=== PATIENT | female | born 1975 | race African-American/Black ===

== ENCOUNTER 2017-02-03 09:45 | Emergency (ER) | payer OTHER ==
[~2017-02-03] VITALS: Ht 180.3 cm; Wt 103.4 kg
--- NOTE | 2017-02-03 10:21 | PHYS DOC ---
Past Medical History Past Medical History: Asthma, Diabetes-Type II Past Surgical History: Hysterectomy, Other Additional Past Surgical Histo: bladder sling Alcohol Use: Occasionally Drug Use: None Adult General Chief Complaint Chief Complaint: ABDOMINAL PAIN HPI HPI Patient is a 41 year old female presents emergency department stating that she has having generalized abdominal pain and discomfort since Wednesday. She states she's been having liquidy diarrhea stools since Wednesday as well. Denies any nausea vomiting denies any fever, chills. She states that she had seen her primary care physician and was provided with Bentyl. The Bentyl has not helped with the cramping and pain. She states that she has had approximately 15 diarrhea stools the last 24 hours, no blood noted in the stools. She denies any vaginal discharge, she denies any urinary. She does state however she has were all in the perineal area due to the frequent diarrhea. Patient also states that she has tried Imodium without relief. Review of Systems Review of Systems Constitutional: Denies fever or chills [] Eyes: Denies change in visual acuity, redness, or eye pain [] HENT: Denies nasal congestion or sore throat [] Respiratory: Denies cough or shortness of breath [] Cardiovascular: No additional information not addressed in HPI [] GI: abdominal pain, diarrhea denies nausea and vomiting : Denies dysuria or hematuria [] Musculoskeletal: Denies back pain or joint pain [] Integument: Denies rash or skin lesions [] Neurologic: Denies headache, focal weakness or sensory changes [] Endocrine: Denies polyuria or polydipsia [] Current Medications Current Medications Current Medications Medications (Trade) Dose Ordered Sig/Aminata Start Time Stop Time Status Last Admin Dose Admin Ciprofloxacin Lactate 200 ml @ 200 mls/hr 1X ONCE 02/03/17 12:00 02/03/17 12:59 02/03/17 12:08 200 MLS/HR Fentanyl Citrate (Fentanyl 2ml Vial) 50 mcg PRN Q15MIN PRN 02/03/17 10:30 02/04/17 10:29 02/03/17 12:08 50 MCG Info (Do NOT chart on this entry -- for MONITORING) 1 each PRN DAILY PRN 02/03/17 11:30 02/05/17 11:29 Iohexol (Omnipaque 240 Mg/ml) 30 ml 1X ONCE 02/03/17 11:15 02/03/17 11:16 DC 02/03/17 11:28 30 ML Iohexol (Omnipaque 300 Mg/ml) 75 ml 1X ONCE 02/03/17 11:15 02/03/17 11:16 DC 02/03/17 11:28 75 ML Ondansetron HCl (Zofran) 4 mg 1X ONCE 02/03/17 10:30 02/03/17 10:31 DC 02/03/17 10:44 4 MG Sodium Chloride 1,000 ml @ 1,000 mls/hr 1X ONCE 02/03/17 12:00 02/03/17 12:59 02/03/17 12:09 1,000 MLS/HR Allergies Allergies Allergies Coded Allergies Type Severity Reaction Last Updated Verified povidone-iodine Allergy Mild rash 02/03/17 Yes soap Allergy Mild rash 02/03/17 Yes Physical Exam Physical Exam Constitutional: Well developed, well nourished, no acute distress, non-toxic appearance. [] HENT: Normocephalic, atraumatic, bilateral external ears normal, oropharynx moist, no oral exudates, nose normal. [] Eyes: PERRLA, EOMI, conjunctiva normal, no discharge. [] Neck: Normal range of motion, no tenderness, supple, no stridor. [] Cardiovascular:Heart rate regular rhythm, no murmur [] Lungs & Thorax: Bilateral breath sounds clear to auscultation [] Abdomen: Bowel sounds hypoactive, soft, generalized tenderness, no masses, no pulsatile masses. No guarding, no rebound tenderness noted Skin: Warm, dry, no erythema, no rash. [] Back: No tenderness Extremities: No tenderness, no cyanosis, no clubbing, ROM intact, no edema. [] Neurologic: Alert and oriented X 3, normal motor function, normal sensory function, no focal deficits noted. [] Psychologic: Affect normal, judgement normal, mood normal. [] Current Patient Data Vital Signs Vital Signs Date Time Temp Pulse Resp B/P (MAP) Pulse Ox O2 Delivery O2 Flow Rate FiO2 02/03/17 12:08 16 95 Room Air 02/03/17 09:57 98.4 94 154/66 (95) 98.4 Lab Values Laboratory Tests Test 02/03/17 10:34 02/03/17 10:37 Urine Collection Type Unknown Urine Color Crys Urine Clarity Clear Urine pH 5.5 Urine Specific [place] 1.025 Urine Protein 30 mg/dL (NEG-TRACE) Urine Glucose (UA) Negative mg/dL (NEG) Urine Ketones (Stick) Negative mg/dL (NEG) Urine Blood Small (NEG) Urine Nitrite Positive (NEG) Urine Bilirubin Negative (NEG) Urine Urobilinogen Dipstick 0.2 mg/dL (0.2 mg/dL) Urine Leukocyte Esterase Small (NEG) Urine RBC Occ /HPF (0-2) Urine WBC 1-4 /HPF (0-4) Urine Squamous Epithelial Cells Mod /LPF Urine Bacteria Many /HPF (0-FEW) Urine Mucus Marked /LPF White Blood Count 3.9 x10^3/uL (4.0-11.0) L Red Blood Count 5.22 x10^6/uL (3.50-5.40) Hemoglobin 14.9 g/dL (12.0-15.5) Hematocrit 44.7 % (36.0-47.0) Mean Corpuscular Volume 86 fL (79-100) Mean Corpuscular Hemoglobin 29 pg (25-35) Mean Corpuscular Hemoglobin Concent 33 g/dL (31-37) Red Cell Distribution Width 13.5 % (11.5-14.5) Platelet Count 299 x10^3/uL (140-400) Neutrophils (%) (Auto) 47 % (31-73) Lymphocytes (%) (Auto) 36 % (24-48) Monocytes (%) (Auto) 14 % (0-9) H Eosinophils (%) (Auto) 3 % (0-3) Basophils (%) (Auto) 1 % (0-3) Neutrophils # (Auto) 1.8 x10^3uL (1.8-7.7) Lymphocytes # (Auto) 1.4 x10^3/uL (1.0-4.8) Monocytes # (Auto) 0.5 x10^3/uL (0.0-1.1) Eosinophils # (Auto) 0.1 x10^3/uL (0.0-0.7) Basophils # (Auto) 0.0 x10^3/uL (0.0-0.2) Sodium Level 143 mmol/L (136-145) Potassium Level 3.5 mmol/L (3.5-5.1) Chloride Level 103 mmol/L (98-107) Carbon Dioxide Level 31 mmol/L (21-32) Anion Gap 9 (6-14) Blood Urea Nitrogen 9 mg/dL (7-20) Creatinine 1.0 mg/dL (0.6-1.0) Estimated GFR (Cockcroft-Gault) 73.2 BUN/Creatinine Ratio 9 (6-20) Glucose Level 214 mg/dL (70-99) H Calcium Level 8.8 mg/dL (8.5-10.1) Total Bilirubin 0.3 mg/dL (0.2-1.0) Aspartate Amino Transferase (AST) 29 U/L (15-37) Alanine Aminotransferase (ALT) 51 U/L (14-59) Alkaline Phosphatase 89 U/L (46-116) Total Protein 8.4 g/dL (6.4-8.2) H Albumin 3.7 g/dL (3.4-5.0) Albumin/Globulin Ratio 0.8 (1.0-1.7) L Laboratory Tests 02/03/17 10:37 Laboratory Tests 02/03/17 10:37 EKG EKG [] Radiology/Procedures Radiology/Procedures [][facility] [address] [place], [place] [id number] IMAGING REPORT Signed PATIENT: INGRID MASSEY ACCOUNT: [id number] : 1975 LOCATION: ER AGE: 41 SEX: F EXAM STATUS: REG ER ORD. PHYSICIAN: WILL BRYANT APRN REASON: abdominal pain with diarrhea since Wednesday PROCEDURE: CT ABD PELV W/ORAL&IV CONTRAST CT of the abdomen and pelvis with contrast, 02/03/2017: History: Upper abdomen Multidetector CT imaging was performed following oral and IV administration of contrast. There was an interruption in the scanning process due to patient vomiting, requiring 2 series. Decreased density in the liver is compatible with fatty change. The gallbladder is unremarkable. No pancreatic abnormality is seen. The spleen is of normal size. There is a 5 cm cystic structure with ring like calcification arising from the anterior aspect of the spleen, compatible with old trauma or infection. There is a 1 cm cyst in the medial left kidney. The kidneys are otherwise unremarkable. The abdominal aorta is unremarkable. No retroperitoneal adenopathy is seen. Multiple small mesenteric lymph nodes are present. There is a lymph node cluster in the right lower quadrant with the largest nodes measure approximately 10 mm in short axis dimension. No iliac or inguinal adenopathy is seen. The uterus is surgically absent. A few scattered colonic diverticula are identified. No paracolonic inflammatory process is seen. The appendix is visualized and shows no abnormality. No bowel dilatation is evident. No free fluid or free air is identified in the abdomen or pelvis. IMPRESSION: 1. Hepatic steatosis. 2. Borderline enlarged mesenteric lymph nodes, likely on a reactive basis. 3. Splenic cyst with rim-like calcification, probably due to old trauma or remote infection. 4. Minimal colonic diverticulosis. PQRS Compliance Statement: One or more of the following individualized dose reduction techniques were utilized for this examination: 1. Automated exposure control 2. Adjustment of the mA and/or kV according to patient size 3. Use of iterative reconstruction technique DICTATED and SIGNED BY: ADDISON RITTER MD DATE: 02/03/17 1213 CC: WILL BRYANT APRN; FAVIO BOURNE MD ~ Course & Med Decision Making Course & Med Decision Making Pertinent Labs and Imaging studies reviewed. (See chart for details) Patient was noted to have one emesis here in the hospital as she was provided with by mouth contrast. Patient was provided with CT results as well as lab results. Patient was noted to have a urinary tract infection. She will be placed on Cipro this should also help with diarrhea as well. She'll be encouraged to take Cipro as ordered as well as Zofran as needed for nausea and vomiting recommended plenty of fluids such as water and cranberry juice recommended avoiding cranberry juice cocktail, carbonate beverages, citrus fruits, alcohol, caffeine as these are considered irritants to the bladder. Patient agrees with discharge instructions, treatment regimens and follow-up recommendations. Patient will be discharged home in stable condition. Signs symptoms to return back to emergency department have been provided. [] Dragon Disclaimer Dragon Disclaimer This electronic medical record was generated, in whole or in part, using a voice recognition dictation system. Departure Departure Impression: Primary Impression: Abdominal pain Additional Impressions: Diarrhea Urinary tract infection Disposition: HOME, SELF-CARE Condition: STABLE Referrals: FAVIO BOURNE MD (PCP) Patient Instructions: Abdominal Pain (Nonspecific), Diarrhea, Diarrhea, Easy-to -Read, Urinary Tract Infection, [id number] Additional Instructions: Your CT was negative for any abnormalities. Your urine urine was positive for urinary tract infection. Drink plenty fluids such as water and cranberry juice. Avoid cranberry juice cocktail, carbonated beverages, citrus fruits, alcohol, caffeine as these are considered irritants to the bladder. Medication as prescribed. Continue with the Bentyl leg you have been prescribed for your abdominal cramping. Zofran for nausea vomiting. Clear liquid diet for the next 24 hours. Continue with the Imodium as needed for diarrhea. Follow-up to primary care physician in the next 3-5 days. Return back to emergency prior signs symptoms of become worse. Scripts Ondansetron (ZOFRAN ODT) 4 Mg Tab.rapdis 1 TAB SL Q8HRS, #10 TAB Prov: WILL BRYANT APRN 02/03/17 Ciprofloxacin Hcl (CIPRO) 500 Mg Tablet 1 TAB PO BID, #14 TAB Prov: WILL BRYANT APRN 02/03/17 Problem Qualifiers WILL BRYANT APRN Feb 03, 2017 10:21
[2017-02-03] MEDS ORDERED: ONDANSETRON PF 4 MG/2 ML VIAL. IV ONE (10:30)
[2017-02-03] MEDS: fentaNYL PF VIAL 100 MCG/2 ML VIAL IV PRN ×2 (10:45→12:08)
[2017-02-03 10:57] LABS: BASO % 1 % (0-3); EOS % 3 % (0-3); HEMATOCRIT 44.7 % (36.0-47.0); HEMOGLOBIN 14.9 g/dL (12.0-15.5); LYMPH # 1.4 x10^3/uL (1.0-4.8); LYMPH % 36 % (24-48); MEAN CORPUSCULAR HEMOGLOBIN 29 pg (25-35); MEAN CORPUSCULAR HGB CONC 33 g/dL (31-37); MEAN CORPUSCULAR VOLUME 86 fL (79-100); MONO % 14 % (0-9); NEUT % 47 % (31-73); PLATELET COUNT 299 x10^3/uL (140-400); RED BLOOD COUNT 5.22 x10^6/uL (3.50-5.40); RED CELL DISTRIBUTION WIDTH 13.5 % (11.5-14.5); WHITE BLOOD COUNT 3.9 x10^3/uL (4.0-11.0)
[2017-02-03 11:04] LABS: CALCIUM 8.8 mg/dL (8.5-10.1); GFR 73.2; POTASSIUM 3.5 mmol/L (3.5-5.1)
[2017-02-03 11:05] LABS: BILIRUBIN,URINE NEGATIVE (NEG); GLUCOSE,URINE NEGATIVE (NEG); NITRITE,URINE POSITIVE (NEG); PH,URINE 5.5; PROTEIN,URINE 30 mg/dL (NEG-TRACE); UROBILINOGEN,URINE 0.2 mg/dL (0.2 mg/dL)
[2017-02-03 11:07] LABS: BACTERIA,URINE MANY /HPF (0-FEW); RBC,URINE OCC /HPF (0-2); SQUAMOUS EPITHELIAL CELL,UR MOD /LPF
[2017-02-03 11:09] LABS: ALBUMIN 3.7 g/dL (3.4-5.0); ALBUMIN/GLOBULIN RATIO 0.8 (1.0-1.7); TOTAL BILIRUBIN 0.3 mg/dL (0.2-1.0); TOTAL PROTEIN 8.4 g/dL (6.4-8.2)
[2017-02-03] MEDS ORDERED: IOHEXOL 240 MG/ML 50ML VIAL. PO ONE (11:15)
[2017-02-03] MEDS ORDERED: IOHEXOL 300 MG/ML 75 ML VIAL IV ONE (11:15)
[2017-02-03] MEDS ORDERED: CONTRAST GIVEN MC PRN (11:30)
[2017-02-03] MEDS ORDERED: IV NORMAL SALINE 1000ML BAG 1,000 ML IV ONE (12:00)
[2017-02-03] MEDS ORDERED: CIPROFLOXACIN 400MG PREMIX 200 ML IV ONE (12:00)
--- NOTE | 2017-02-03 12:26 | RAD ---
CT of the abdomen and pelvis with contrast, 02/03/2017: History: Upper abdomen Multidetector CT imaging was performed following oral and IV administration of contrast. There was an interruption in the scanning process due to patient vomiting, requiring 2 series. Decreased density in the liver is compatible with fatty change. The gallbladder is unremarkable. No pancreatic abnormality is seen. The spleen is of normal size. There is a 5 cm cystic structure with ring like calcification arising from the anterior aspect of the spleen, compatible with old trauma or infection. There is a 1 cm cyst in the medial left kidney. The kidneys are otherwise unremarkable. The abdominal aorta is unremarkable. No retroperitoneal adenopathy is seen. Multiple small mesenteric lymph nodes are present. There is a lymph node cluster in the right lower quadrant with the largest nodes measure approximately 10 mm in short axis dimension. No iliac or inguinal adenopathy is seen. The uterus is surgically absent. A few scattered colonic diverticula are identified. No paracolonic inflammatory process is seen. The appendix is visualized and shows no abnormality. No bowel dilatation is evident. No free fluid or free air is identified in the abdomen or pelvis. IMPRESSION: 1. Hepatic steatosis. 2. Borderline enlarged mesenteric lymph nodes, likely on a reactive basis. 3. Splenic cyst with rim-like calcification, probably due to old trauma or remote infection. 4. Minimal colonic diverticulosis. PQRS Compliance Statement: One or more of the following individualized dose reduction techniques were utilized for this examination: 1. Automated exposure control 2. Adjustment of the mA and/or kV according to patient size 3. Use of iterative reconstruction technique
[2017-02-03] MEDS ORDERED: CIPR500T94 PO (13:00)
[2017-02-03] MEDS ORDERED: ONDA4TAB10 SL (13:00)
[2017-02-03 13:18] VITALS: BP 114/69
[2017-02-03] MEDS ORDERED: CIPROFLOXACIN 400MG PREMIX 200 ML IV SCH (21:00)
== END 2017-02-03 13:44 | disposition home or self-care (01) ==
LOC: ER 09:45
DX: N39.0 Urinary tract infection, site not specified (principal); R19.7 Diarrhea, unspecified; E11.9 Type 2 diabetes mellitus without complications; J45.909 Unspecified asthma, uncomplicated; Z90.710 Acquired absence of both cervix and uterus; Z88.8 Allergy status to other drugs, medicaments and biological substances; Z91.041 Radiographic dye allergy status
CPT/HCPCS: 36415; 74177; 80053; 81001; 85027; 87086; 96365; 96375; 96376; 99285; J0744; J2405; J3010; J7030; Q9966; Q9967

== ENCOUNTER → 2018-03-22 | Outpatient (CLI) | payer OTHER ==
[~2018-03-22] MED LIST: CIPR500T94 PO; CONTRAST GIVEN. MC PRN; IOHEXOL 240 MG/ML 50ML VIAL. PO ONE; ONDA4TAB10 SL
--- NOTE | 2018-03-22 11:23 | RAD ---
CT ABDOMEN WO CONTRAST dated 03/22/2018 9:30 AM Indication: Evaluate spleen abnormality..SPLENIC CALCIFICATIPON PRIOR SENT. Comparison: 02/03/2017 Technique: Contiguous axial imaging the abdomen and pelvis performed without the administration of IV or oral contrast. One or more of the following individualized dose reduction techniques were utilized for this examination: 1. Automated exposure control 2. Adjustment of the mA and/or kV according to patient size 3. Use of iterative reconstruction technique Findings: Again noted is a rim calcified low-density lesion of the spleen that measures 4.9 cm diameter and central Hounsfield value of 20, unchanged. Spleen is normal in size. No new lesions identified. Solid abdominal viscera not well evaluated in the absence of contrast material. No apparent attenuation abnormality of the liver. Pancreas adrenal glands and kidneys are unremarkable. No stone or hydronephrosis. Gallbladder unremarkable. Unopacified GI tract normal in caliber and contour. No focal bowel wall thickening. The appendix is normal in caliber. No ascites or lymphadenopathy. Abdominal aorta normal in caliber. Limited images of lung bases are clear. Heart size upper limits of normal. No pleural or pericardial effusion. Bone windows show no acute findings. Impression: 1. No significant interval change in rim calcified lesion of the medial spleen, likely a benign lesion such as splenic cyst or hemangioma or lymphangioma. 2. Otherwise no significant abnormality. Electronically signed by: Prosper Cochran MD (03/22/2018 11:20 AM) [id number]
== END | disposition home or self-care (01) ==
LOC: CT 10:04
PROVIDERS: ATTEND Nurse Practitioner Gerontology
DX: D73.89 Other diseases of spleen (principal); E11.9 Type 2 diabetes mellitus without complications; J45.909 Unspecified asthma, uncomplicated; Z90.710 Acquired absence of both cervix and uterus; Z91.041 Radiographic dye allergy status; Z88.8 Allergy status to other drugs, medicaments and biological substances
CPT/HCPCS: 74150

== ENCOUNTER → 2019-07-24 | Outpatient (CLI) | payer OTHER ==
[2019-01-17 11:05] VITALS: BP 143/94
[~2019-07-24] MED LIST changes: +ALBU2.5V5 NEB; +BECL10.6 IH; +CLON-77 PO; -CONTRAST GIVEN. MC PRN; +ESCITALOPRAM OX10 MG PO; -IOHEXOL 240 MG/ML 50ML VIAL. PO ONE; +PHEN37.53 PO
--- NOTE | 2019-07-24 12:34 | RAD ---
MRI of the lumbar spine without contrast 07/24/2019 CLINICAL HISTORY: Low back pain which radiates down the right leg. TECHNIQUE: Unenhanced T1-weighted and T2-weighted sagittal and axial and inversion recovery sagittal images the lumbar spine were obtained. FINDINGS: Comparison is made to radiographs of the lumbar spine dated 03/14/2018. Mild S-shaped curvature of the thoracolumbar spine is seen. Degenerative signal changes are seen involving the L3-4, L4-5 and L5-S1 discs. Degenerative signal changes are seen within the marrow surrounding these discs. Loss of height of the L5-S1 disc is noted. The conus medullaris is normal morphology, position, and signal characteristics. The L1-2 and L2-3 disc spaces are within normal limits. At the L3-4 and L4-5 disc spaces there are minimal to mild generalized disc bulges. Degenerative changes are seen involving the facet joints bilaterally. There is mild to moderate ligamentum flavum hypertrophy bilaterally. These findings do not result in significant central spinal canal or neural foraminal stenosis. At the L5-S1 disc space there is a mild generalized disc bulge. Superimposed on this disc bulge is a central/left paracentral focal disc protrusion. This measures 3 mm in AP diameter. Degenerative changes are seen involving the facet joints bilaterally. There is mild ligamentum flavum hypertrophy bilaterally. These findings when combined do not result in significant central spinal canal or neural foraminal stenosis. IMPRESSION: The changes of degenerative disc disease are seen involving the mid and lower lumbar spine. These findings do not result in significant central spinal canal or neural foraminal stenosis. Electronically signed by: Avel Oliver MD (07/24/2019 12:31 PM) [facility]
== END | disposition home or self-care (01) ==
LOC: MRI 09:55
PROVIDERS: ATTEND Physician Assistant
DX: M51.17 Intervertebral disc disorders with radiculopathy, lumbosacral region (principal)
CPT/HCPCS: 72148

== ENCOUNTER → 2019-09-20 | Outpatient (CLI) | payer OTHER ==
[2019-01-17 11:05] VITALS: BP 143/94
[~2019-09-20] MED LIST changes: +DULA0.75 SQ; +ESTR0.3T PO; +IOHEXOL 180 MG/ML 10 ML VIAL. ONE; +TRAM50TA PO; +methylPREDNISolone ACETATE 40 MG/ML VIAL. ONE; +methylPREDNISolone ACETATE 80 MG/ML VIAL. ONE
--- NOTE | 2019-09-21 01:04 | PAIN ---
DATE OF SERVICE: 09/20/2019 INITIAL CONSULTATION FOR PAIN CLINIC CHIEF COMPLAINT: Low back and bilateral lower extremity pain. HISTORY OF PRESENT ILLNESS: This is a 44-year-old female who presents with history of pain in the low back and bilateral lower extremities since 05/2019, not a result of any specific injury or action that she is aware of, but this is coming on more noticeably as she has been taking care of her 25-year-old son who has cancer and has been having to help him at home with patient transfer and lifting and this has caused the pain to increase in the low back and the bilateral lower extremities. The patient reports it is slightly worse on the right than the left, but present bilaterally. The patient reports the pain is sharp, stabbing, throbbing, shooting in the lower extremities, tingling and numbness in the back as well as aching in the back, into the posterior gluteus, posterior thighs, posterolateral thighs, anterior thighs and into the calves as well. The patient reports her disability rating from 0-10, 10 being the worst, is an 8-9 with family home responsibilities and recreation, 7-8 with social activity and occupation, 6-7 with self-care, 7-8 with life support activities, and 10 with sexual behavior. The patient did have an MRI scan of the lumbar spine showing degenerative disk changes at L3-L4 and L4-L5 with [id number] ligamentum flavum hypertrophy, L5-S1 showing mild generalized disk bulge, superimposed on disk bulge that is central, left paracentral, focal disk protrusion as well. The patient reports no loss of motor function, but significant fatigability of both lower extremities, also some pain in the mid upper back as well since the low back pain as being worse. PAST MEDICAL HISTORY: Significant for type 2 diabetes and arthritis. PAST SURGICAL HISTORY: Previous surgeries include hysterectomy and gastric sleeve in 2017. CURRENT MEDICATIONS: Include Premarin, albuterol, tramadol, and Trulicity. ALLERGIES: THE PATIENT IS ALLERGIC TO IODINE TOPICAL. FAMILY HISTORY: Significant for heart disease, hypertension, cancers and diabetes. SOCIAL HISTORY: The patient drinks alcohol very rarely, once or twice a year, does not smoke, denies any illegal, illicit or recreational drugs, is , lives with her spouse, has 4 children living at home, and lives locally in [place], [place]. REVIEW OF SYSTEMS: Positive for those items mentioned in history of present illness. All systems reviewed and otherwise negative. It is complete, full and well documented on the patient's chart. PHYSICAL EXAMINATION: VITAL SIGNS: The patient's blood pressure is 125/83, pulse 67, respirations 18, temperature 98.1 degrees Fahrenheit, height is 6 feet, weight is 217 pounds. GENERAL: The patient is awake, alert, oriented, appropriate, very pleasant demeanor. HEENT: Shows normocephalic, atraumatic. Extraocular movements are intact and symmetrical. Oral cavity, mucous membranes are moist and pink. Dentition is intact. NECK: Shows anterior throat supple without palpable lymphadenopathy noted. Swallow reflex is symmetrical. CHEST: Shows normal on inspection. Breath sounds clear to auscultation bilaterally. HEART: Shows S1, S2 clear. No murmurs auscultated. ABDOMEN: Soft, nontender, nondistended. No palpable organomegaly is noted. No rebound or guarding demonstrated. BACK: Shows spine grossly in the midline. Normal appearing thoracic kyphosis and some slight flattening of lumbar lordotic curvature. Lumbar paraspinous muscle shows symmetrical on inspection, on palpation shows some moderate tenderness diffusely bilaterally going diffusely without significant radiation. The patient has good rotational motion of lumbar spine, both laterally as well as extension and flexion without significant difficulty or radiation as well. No tenderness over the spinous processes, sacrum or sacroiliac regions. EXTREMITIES: The patient's lower extremities show deep tendon reflexes at 2+ in the patellar, 1+ tendo-calcaneus tendons. Motor exam is strong with approximately 4 on a scale of 5 with right dorsiflexion, extension and 5/5 on the left, quadriceps and hamstring flexion is likewise 4 on a scale of 5 on the right and 5/5 on the left. The patient does have positive straight leg raise on the right about 40 degrees. Left side is negative. Gaenslen's and Adal's maneuvers are negative bilaterally. The patient's lower extremities are warm and dry to touch, equal in color and appearance. The patient is able to stand, stand on her toes without significant difficulty or loss of balance, walks with a normal-appearing gait, does not appear to favor the right or left lower extremity significantly, not using any assistive devices to ambulate. SKIN: Shows warm and dry, good turgor. No edema. No sores, rashes or bruising throughout. IMPRESSION: 1. This is a 44-year-old female with approximate 3-month history of increasing pain in low back, bilateral lower extremities in a radicular fashion. 2. MRI scan of lumbar spine as noted. 3. Arthritis. 4. Type 2 diabetes. PLAN: Options were discussed with the patient including conservative medical managements, physical therapies and interventional techniques. She would like to pursue interventional techniques. We discussed a lumbar epidural steroid injection using description as well as anatomical models to describe the procedure. Risks were then discussed including, but not limited to bleeding, infection, possibility of epidural hematoma, subsequent neurological compromise, dural puncture, headaches, spinal cord and/or nerve damage, side effects of steroid medication and poor results regarding pain control. The patient understands and wished to proceed. The patient will return to the clinic in approximately 2 weeks for followup. She was counseled on return appointment, activity level and side effects to be aware of. DIAGNOSIS: Lumbar radiculopathy with lumbar degenerative disk disease. PROCEDURE: Lumbar epidural steroid injection with translaminar approach at L5-S1 level using C-arm fluoroscopic guidance under sterile prep and drape using local anesthetic. MEDICATION INJECTED: A total of 120 mg of Depo-Medrol plus 10 mL of preservative-free normal saline and 2 mL of contrast. CONDITION AT DISCHARGE: Stable. The patient tolerated the procedure well, had no complications. MATTHEW LIZ MD DR: JOHN/asher JOB#: [id number] / [id number]
== END ==
LOC: PNCL 08:45
PROVIDERS: ATTEND Anesthesiology
DX: M51.16 Intervertebral disc disorders with radiculopathy, lumbar region (principal); E11.9 Type 2 diabetes mellitus without complications; Z90.710 Acquired absence of both cervix and uterus; Z90.3 Acquired absence of stomach [part of]; Z88.8 Allergy status to other drugs, medicaments and biological substances; Z72.89 Other problems related to lifestyle; Z79.84 Long term (current) use of oral hypoglycemic drugs
CPT/HCPCS: 62323; J1030; J1040; Q9965

== ENCOUNTER → 2019-12-27 | Outpatient (CLI) | payer OTHER ==
[2019-01-17 11:05] VITALS: BP 143/94
--- NOTE | 2019-12-27 11:11 | PAIN ---
DATE OF SERVICE: 12/27/2019 PROGRESS NOTE FOR PAIN CLINIC DIAGNOSES: Lumbar radiculopathy with lumbar degenerative disk disease. HISTORY OF PRESENT ILLNESS: The patient is a 44-year-old female, who returns for followup status post lumbar epidural steroid injection x 1; last seen 09/20/2019. The patient did very well with about 70% improvement for the first 3 weeks to a month. The patient reports the pain is returning now in the low back and right lower extremities, primarily in the posterior gluteus, posterior thigh, posterior calf, it is radiating. The patient describes the pain as aching and sharp, dull and tight in the back and shooting in the right lower extremity with a stabbing pain in the leg as well. The patient reports it is a 10 on a scale of 10 at its worst over the past week, 9 on average and a 6 at its least and is a 9 today. The patient reports no new motor or sensory deficits. No new bowel or bladder incontinence or other complaints. PHYSICAL EXAMINATION: VITAL SIGNS: The patient's blood pressure is 118/78, pulse 83, respirations 18, temperature is 98.2 degrees Fahrenheit, height is 6 feet, weight is 216 pounds. GENERAL: The patient is awake, alert, oriented, appropriate, has very pleasant demeanor. HEENT: Shows normocephalic, atraumatic. Extraocular movements are intact and symmetrical. Oral cavity: Mucous membranes moist and pink. Dentition is intact. NECK: Shows anterior throat supple without palpable lymphadenopathy noted. Swallow reflex symmetrical. CHEST: Shows normal on inspection. Breath sounds are clear bilaterally. No rales, rhonchi or wheezes auscultated. ABDOMEN: Soft, obese, nontender, nondistended. HEART: Shows S1, S2 clear. No murmurs auscultated. BACK: The patient's back shows spine grossly in the midline, slightly exaggerated thoracic kyphosis and minor flattening of lumbar lordotic curvature. Lumbar paraspinous muscle shows symmetrical on inspection, on palpation shows some moderate tenderness diffusely bilaterally and only diffusely without significant radiation. The patient has good rotational motion of lumbar spine, both laterally as well as extension and flexion without difficulty. EXTREMITIES: Lower extremities show deep tendon reflexes 2+ in the patellar, 1+ in the tendo-calcaneus tendons. Motor exam is approximately 4 on a scale of 5 with right dorsiflexion and extension, and 5/5 on the left. Peripheral pulses are 1+ posterior tibia. No peripheral edema is noted bilaterally. Options were discussed with the patient. The patient's old chart was reviewed as her current medication regimen updated. Current review of systems updated today as well. We will proceed with a second in a series of lumbar epidural steroid injection today with fluoroscopic guidance. Risks were again discussed, including but not limited to bleeding, infection, possibility of epidural hematoma and subsequent neurological compromise, dural puncture, headaches, spinal cord and/or nerve damage, side effects of steroid medication and poor results regarding pain control. The patient understands and wished to proceed. The patient will return to the clinic in approximately 2 weeks for followup. She was counseled as to return appointment, activity level and side effects to be aware of. DIAGNOSES: Lumbar radiculopathy with lumbar degenerative disk disease. PROCEDURE: Lumbar epidural steroid injection, translaminar approach L5-S1 level using C-arm fluoroscopic guidance under sterile prep and drape using local anesthetic. MEDICATION INJECTED: A total of 120 mg Depo-Medrol plus 10 mL of preservative-free normal saline and 2 mL of contrast. CONDITION AT DISCHARGE: Stable. The patient tolerated the procedure well, had no complications. MATTHEW LIZ MD DR: JOHN/asher JOB#: [id number] / [id number]
== END ==
LOC: PNCL 10:28
PROVIDERS: ATTEND Anesthesiology
DX: M51.16 Intervertebral disc disorders with radiculopathy, lumbar region (principal)
CPT/HCPCS: 62323; J1030; J1040; Q9965

== ENCOUNTER → 2020-03-20 | Outpatient (CLI) | payer OTHER ==
[2019-01-17 11:05] VITALS: BP 143/94
[~2020-03-20] MED LIST changes: +CYCL5TAB PO; +LIDO700A21 TP
--- NOTE | 2020-03-20 11:33 | PDOC ---
Progress Note - Pain Clinic Date of Service: DOS: DATE: 03/20/20 TIME: 11:30 Diagnosis: Dx: Lumbar radiculopathy with lumbar degenerative disc disease History or Present Illness: HPI: 44-year-old female returns for follow-up status post lumbar epidural surgeries x2. Last seen sixth December 27, 2019, patient reports she did well with the injection at that time pain is returning now however the low back in the right lower extremity posterior gluteus posterior thigh posterior calf worse with walking standing changing positions initially she was a much better with the distance walking doing work activities household activities try with greater ease and comfort. Patient reports her does not awaken her from sleep at night he sleep about 8 hours at a time without interruption. Patient rates her pain as a 10 on scale of 10 is worst average and least over the past week is a 10 on a scale of 10 today patient was sharp and tight shooting in the right lower extremity across the low back with a burning sensation at times as well. Patient reports no new motor or sensory deficits no new bowel or bladder incontinence or other complaints. Physical Exam: VS: Blood pressure is 124/83 pulse 83 respirations 16 temperature is 98.2 F height 6 foot weight is 216 PE: PHYSICAL EXAMINATION: GENERAL: The patient is awake, alert, oriented, appropriate, very pleasant demeanor HEENT: Shows normocephalic, atraumatic. Extraocular movements are intact and symmetrical. Oral cavity: Mucous membranes moist and pink. NECK: Shows anterior throat supple without palpable lymphadenopathy noted. Swallow reflex symmetrical. CHEST: Shows normal on inspection. Breath sounds are clear bilaterally, no rales rhonchi or wheezes auscultated. HEART: Shows S1, S2 clear. No murmurs auscultated. ABDOMEN: Soft, nontender, nondistended. No palpable organomegaly is noted. No rebound or guarding demonstrated. BACK: Shows spine grossly in the midline. Normal-appearing cervical lordotic curvature. There is slightly increased thoracic kyphosis, some minor flattening of the lumbar lordotic curvature. Lumbar paraspinous muscles show symmetrical on inspection, on palpation shows some moderate tenderness diffusely throughout the upper, middle and lower distribution of the paraspinous muscles bilaterally without specific trigger points, without radiation of pain. The patient has good rotational motion of the lumbar spine, both laterally as well as extension and flexion without significant difficulty. No tenderness over the spinous processes, sacrum or sacroiliac regions. EXTREMITIES: Lower extremities show deep tendon reflexes 2+ in the patellar and tendo calcaneus tendons. Motor exam is 4 on a scale of 5 with right dorsiflexion, extension, quadriceps and hamstring flexion and 5/5 on the left. Peripheral pulses are 1+ posterior tibial. No peripheral edema is noted bilaterally. Lower extremities are warm and dry to touch, equal in color and appearance. SKIN: Shows warm and dry, good turgor. No edema. No sores, rashes or bruising throughout. Procedure: Procedure: Options were discussed with the patient. Patient will chart was reviewed his recurrent medication regimen updated current review of systems updated today as well. We will proceed with a third in the series lumbar epidural straight injection today with fluoroscopic guidance. Risks are discussed including but not limited to bleeding infection possibility of epidural hematoma subsequent neurological compromise dural puncture headache spinal cord and or nerve damage side effects of steroid medication and poor results regarding pain control. Patient understands wished to proceed. Patient return to clinic in approximately 2 weeks for follow-up was counseled as to return appointment acti vity level and side effects to be aware of. Medication Injected: Med Injected: Procedure is lumbar epidural steroid injection under local anesthetic using sterile prep and drape at the L5-S1 level using C-arm fluoroscopic guidance in both AP and lateral views medications injected is 120 mg Depo-Medrol + 10 mL preservative-free normal saline and 2 mL contrast- condition at discharge is stable patient tolerated procedure well had no complications. Condition at Discharge: Condition at Discharge: Condition at discharge stable patient tolerated procedure well had no compli cations. MATTHEW LIZ MD Mar 20, 2020 11:33
== END | disposition home or self-care (01) ==
LOC: PNCL 10:22
PROVIDERS: ATTEND Anesthesiology
DX: M51.16 Intervertebral disc disorders with radiculopathy, lumbar region (principal); Z88.8 Allergy status to other drugs, medicaments and biological substances; Z79.899 Other long term (current) drug therapy
CPT/HCPCS: 62323; J1030; J1040; Q9965

== ENCOUNTER 2020-03-28 22:31 | Inpatient (IN) | payer OTHER ==
[~2020-03-28] VITALS: Ht 182.9 cm; Wt 93.1 kg
[~2020-03-28 22:31] MED LIST changes: -IOHEXOL 180 MG/ML 10 ML VIAL. ONE; -methylPREDNISolone ACETATE 40 MG/ML VIAL. ONE; -methylPREDNISolone ACETATE 80 MG/ML VIAL. ONE
--- NOTE | 2020-03-28 23:09 | PHYS DOC ---
Past Medical History Past Medical History: Anxiety, Asthma, Diabetes-Type II Past Surgical History: Hysterectomy, Other Additional Past Surgical Histo: bladder sling Smoking Status: Never Smoker Alcohol Use: Occasionally Drug Use: None General Adult EDM: Chief Complaint: FEVER HPI: HPI: The history was obtained from the patient. Patient is a 44-year-old female with PMH chronic back pain, hypertension, hyperlipidemia who presents with a chief complaint of fevers and body aches. Patient states she has had a documented temperature every day for the past 5 days. She states her temperatures been as high as 102.0 but it has been consistently above 100.0. She notes that she recently received lumbar spinal injections on March 20. She does note that she has had these injections before does have increased back pain over that area post procedure than normal. Denies any trauma or injury. Does report a mild sore throat only when she coughs. Denies dysphonia or pain with swallowing. Does note body aches. Does note mild chest pain and back pain she attributes to aching sensation. Denies urinary symptoms. States she has a history of hysterectomy. Denies vomiting. Does note some nausea. Denies abdominal pain. Patient denies any urinary retention, stool incontinence, saddle anesthesia, history of IV drug use, or history of cancer. Review of Systems: Review of Systems: Constitutional: Positive for fevers and chills Eyes: Denies change in visual acuity. [] HENT: Denies nasal congestion or sore throat. [] Respiratory: Denies cough or shortness of breath. [] Cardiovascular: Denies chest pain or edema. [] GI: Denies abdominal pain, nausea, vomiting, bloody stools or diarrhea. [] : Denies dysuria. [] Musculoskeletal: Positive for back pain, positive for body aches Integument: Denies rash. [] Neurologic: Denies headache, focal weakness or sensory changes. [] Endocrine: Denies polyuria or polydipsia. [] Lymphatic: Denies swollen glands. [] Psychiatric: Denies depression or anxiety. [] Heart Score: Risk Factors: Risk Factors: DM, Current or recent (<one month) smoker, HTN, HLP, family history of CAD, obesity. Risk Scores: Score 0 - 3: 2.5% MACE over next 6 weeks - Discharge Home Score 4 - 6: 20.3% MACE over next 6 weeks - Admit for Clinical Observation Score 7 - 10: 72.7% MACE over next 6 weeks - Early Invasive Strategies Allergies: Allergies: Allergies Coded Allergies Type Severity Reaction Last Updated Verified povidone-iodine Allergy Mild rash 02/03/17 Yes soap Allergy Mild rash 02/03/17 Yes Physical Exam: PE: Constitutional: Well developed, well nourished, no acute distress, non-toxic appearance. [] HENT: Normocephalic, atraumatic, bilateral external ears normal, oropharynx moist, no oral exudates, nose normal. [] Eyes: PERRLA, EOMI, conjunctiva normal, no discharge. [] Neck: Normal range of motion, no tenderness, supple, no stridor. [] Cardiovascular:Heart rate regular rhythm, no murmur [] Lungs & Thorax: Bilateral breath sounds clear to auscultation [] Abdomen: soft, no tenderness, no masses, no pulsatile masses. [] Skin: Warm, dry, no erythema, no rash. [] Back: + 5/5 motor strength in dorsiflexion and plantarflexion of the great toes bilaterally. Sensation intact between the webbing of the first and second toes bilaterally. Extremities: No tenderness, no cyanosis, no clubbing, ROM intact, no edema. [] Neurologic: Alert and oriented X 3, normal motor function, normal sensory function, no focal deficits noted. [] Psychologic: Affect normal, judgement normal, mood normal. [] Current Patient Data: Labs: Laboratory Tests Test 03/28/20 22:50 03/28/20 23:08 Urine Collection Type Unknown Urine Color Yellow Urine Clarity Clear Urine pH 5.5 Urine Specific [place] >=1.030 Urine Protein Negative mg/dL Urine Glucose (UA) Negative mg/dL Urine Ketones (Stick) 15 mg/dL Urine Blood Trace Urine Nitrite Negative Urine Bilirubin Negative Urine Urobilinogen Dipstick 1.0 mg/dL Urine Leukocyte Esterase Negative Urine RBC Occ /HPF Urine WBC 1-4 /HPF Urine Squamous Epithelial Cells Many /LPF Urine Bacteria Moderate /HPF Urine Mucus Marked /LPF White Blood Count 3.7 x10^3/uL Red Blood Count 5.15 x10^6/uL Hemoglobin 14.5 g/dL Hematocrit 43.2 % Mean Corpuscular Volume 84 fL Mean Corpuscular Hemoglobin 28 pg Mean Corpuscular Hemoglobin Concent 34 g/dL Red Cell Distribution Width 13.6 % Platelet Count 190 x10^3/uL Neutrophils (%) (Auto) 68 % Lymphocytes (%) (Auto) 26 % Monocytes (%) (Auto) 6 % Eosinophils (%) (Auto) 0 % Basophils (%) (Auto) 1 % Neutrophils # (Auto) 2.5 x10^3/uL Lymphocytes # (Auto) 1.0 x10^3/uL Monocytes # (Auto) 0.2 x10^3/uL Eosinophils # (Auto) 0.0 x10^3/uL Basophils # (Auto) 0.0 x10^3/uL Sodium Level 135 mmol/L Potassium Level 4.1 mmol/L Chloride Level 98 mmol/L Carbon Dioxide Level 31 mmol/L Anion Gap 6 Blood Urea Nitrogen 14 mg/dL Creatinine 1.0 mg/dL Estimated GFR (Cockcroft-Gault) 72.2 Glucose Level 175 mg/dL Calcium Level 8.2 mg/dL C-Reactive Protein, Quantitative 10.3 mg/L Current Medications Medications (Trade) Dose Ordered Sig/Aminata Route PRN Reason Start Time Stop Time Status Last Admin Dose Admin Diphenhydramine HCl (Benadryl) 25 mg 1X ONCE IVP 03/28/20 23:15 03/28/20 23:16 DC 03/28/20 23:18 Ondansetron HCl (Zofran) 4 mg 1X ONCE IVP 03/28/20 23:15 03/28/20 23:16 DC 03/28/20 23:18 Vital Signs: Vital Signs Date Time Temp Pulse Resp B/P (MAP) Pulse Ox O2 Delivery O2 Flow Rate FiO2 03/28/20 22:45 99.7 96 18 119/62 (81) 98 Room Air 99.7 EKG: EKG: [] Radiology/Procedures: Radiology/Procedures: [] Course & Med Decision Making: Course & Med Decision Making Pertinent Labs and Imaging studies reviewed. (See chart for details) [] Patient is a 44-year-old female who presents with multiple complaints including objective fever at home associated with low back pain status post epidural injections recently. Basic labs have been grossly unremarkable. Urinalysis did show some bacteria. Her low back pain may be attributed to mild UTI. She will be given oral Keflex until urine culture returns. Mildly elevated CRP. COVID swab obtained and pending. Overall I am concerned for her low back pain associated with objective temperatures at home given her recent epidural injections. Her neurologic exam is reassuring at this time. I do feel however she would benefit to have discitis versus epidural abscess ruled out with MRI imaging. Patient will be hospitalized to our observation unit until MRI imaging can be obtained tomorrow morning. On repeat examination her neurologic exam remains unchanged and there is no acute neurologic emergency at this time. Patient agreeable to stay in the observation unit. COVID-19 CRITERIA: The patient was evaluated during the global COVID-19 pandemic, and that diagnosis was suspected/considered upon their initial presentation. Their evaluation, treatment and testing was consistent with current guidelines for patients who present with complaints or symptoms that may be related to COVID-19. Vincent Disclaimer: Dragon Disclaimer: This electronic medical record was generated, in whole or in part, using a voice recognition dictation system. Departure Departure Impression: Primary Impression: Back pain Qualified Codes: M54.5 - Low back pain Additional Impressions: Fever Qualified Codes: R50.82 - Postprocedural fever S/P epidural steroid injection Bacteria in urine Disposition: ADMITTED INPATIENT Condition: STABLE Referrals: UNKNOWN PCP NAME (PCP) Justicifation of Admission Dx: Justifications for Admission: Justification of Admission Dx: Yes Comments: low back pain with fever s/p epidural steroid injections. AJAY BOSS DO Mar 28, 2020 23:09
[2020-03-28 23:10] LABS: BILIRUBIN,URINE NEGATIVE (NEG); CLARITY,URINE CLEAR; COLOR,URINE YELLOW; NITRITE,URINE NEGATIVE (NEG); PH,URINE 5.5 (<5.0-8.0); PROTEIN,URINE NEGATIVE (NEG-TRACE)
[2020-03-28 23:15] LABS: BACTERIA,URINE MODERATE /HPF (0-FEW); RBC,URINE OCC /HPF (0-2); SQUAMOUS EPITHELIAL CELL,UR MANY /LPF
[2020-03-28] MEDS ORDERED: ONDANSETRON PF 4 MG/2 ML VIAL. IVP ONE (23:15)
[2020-03-28] MEDS ORDERED: diphenhydrAMINE 50 MG/ML VIAL IVP ONE (23:15)
[2020-03-28 23:25] LABS: BASO % 1 % (0-3); EOS % 0 % (0-3); HEMATOCRIT 43.2 % (36.0-47.0); HEMOGLOBIN 14.5 g/dL (12.0-15.5); LYMPH % 26 % (24-48); MEAN CORPUSCULAR HEMOGLOBIN 28 pg (25-35); MEAN CORPUSCULAR HGB CONC 34 g/dL (31-37); MEAN CORPUSCULAR VOLUME 84 fL (79-100); MONO # 0.2 x10^3/uL (0.0-1.1); MONO % 6 % (0-9); NEUT # 2.5 x10^3/uL (1.8-7.7); NEUT % 68 % (31-73); PLATELET COUNT 190 x10^3/uL (140-400); RED BLOOD COUNT 5.15 x10^6/uL (3.50-5.40); RED CELL DISTRIBUTION WIDTH 13.6 % (11.5-14.5); WHITE BLOOD COUNT 3.7 x10^3/uL (4.0-11.0)
[2020-03-28 23:35] LABS: CALCIUM 8.2 mg/dL (8.5-10.1); GFR 72.2; POTASSIUM 4.1 mmol/L (3.5-5.1)
[2020-03-28 23:36] LABS: C-REACTIVE PROTEIN 10.3 mg/L (0-3.3)
[2020-03-29] MEDS ORDERED: CEPHALEXIN 250 MG CAPSULE. PO ONE (00:30)
[2020-03-29] MEDS ORDERED: ONDANSETRON PF 4 MG/2 ML VIAL. IV PRN (00:30)
[2020-03-29] MEDS ORDERED: HYDROcodone/APAP 5/325MG 1 TAB TABLET PO ONE (01:45)
[2020-03-29 02:00] VITALS: BP 109/54
--- NOTE | 2020-03-29 05:23 | RAD ---
INDICATION: Reason: body aches + fever / Spl. Instructions: / History: COMPARISON: December 2018 FINDINGS: Single view of chest obtained. Cardiomediastinal silhouette is enlarged. Hypoexpanded examination with mild linear opacities at lung bases. IMPRESSION: * Hypoexpanded exam with mild linear opacities at lung bases. The most likely causes atelectasis but early infiltrate is not excluded. Electronically signed by: Bandar Howard MD (03/29/2020 5:20 AM) [id number]
[2020-03-29 07:41] VITALS: BP 99/66
--- NOTE | 2020-03-29 08:39 | PDOC1 ---
History and Physical Date of Admission Date of Admission DATE: 03/29/20 TIME: 08:35 Identification/Chief Complaint Chief Complaint Fevers, back pain, leg spasms Source Source: Patient History of Present Illness History of Present Illness Ms Price (Alba) is a 44 yo F w/ PMHx Anxiety, Asthma, Diabetes-Type II, chronic lower back pain who presents with multiple complaints including objective fever at home of 100.7 F associated with low back pain status post epidural injections recently, most recent on 03/20/2020. She also c/o generalized body aches. Patient states she has had a documented temperature every day for the past 5 days, temp as high as 102F. She notes increased back pain over her post procedure area from LESI, though no obvious cellulitis noted on examination. Denies any trauma or injury. Does report a mild sore throat only when she coughs. Denies dysphonia or pain with swallowing. Does note body aches. Does note mild chest pain and back pain she attributes to aching sensation. Denies urinary symptoms. States she has a history of hysterectomy and bladder sling, however. Denies vomiting. Does note some nausea. Denies abdominal pain. Patient denies any urinary retention, stool incontinence, saddle anesthesia, but she does notice bilateral leg spasms that she cannot control in thighs and calves and also some weakness to the bilateral legs. CXR hypoexpanded exam with mild linear opacities at lung bases. Labs significant for WBC 3.7, Hb 14.5, platelets 190, NA 135, K4.1, mag 2.1, BUN 14, CR 1, glucose 175, CA 10.3, CRP elevated at 10.3. Given Keflex in ED. COVID swab obtained and pending. Patient admitted for further treatment. Past Medical History Cardiovascular: No pertinent hx, Other Pulmonary: Asthma CENTRAL NERVOUS SYSTEM: Other GI: No pertinent hx Heme/Onc: No pertinent hx Hepatobiliary: No pertinent hx Psych: Anxiety, Other Musculoskeletal: Osteoarthritis Rheumatologic: No pertinent hx Infectious disease: No pertinent hx Renal/: No pertinent hx Endocrine: Diabetes Past Surgical History Past Surgical History: Hysterectomy Family History Family History: Heart Disease Social History ALCOHOL: none Drugs: None Current Problem List Problem List Problems Medical Problems: (1) Back pain Status: Acute (2) Bacteria in urine Status: Acute (3) Fever Status: Acute Current Medications Current Medications Current Medications Diphenhydramine HCl (Benadryl) 25 mg 1X ONCE IVP Last administered on 03/28/20at 23:18; Start 03/28/20 at 23:15; Stop 03/28/20 at 23:16; Status DC Ondansetron HCl (Zofran) 4 mg 1X ONCE IVP Last administered on 03/28/20at 23:18; Start 03/28/20 at 23:15; Stop 03/28/20 at 23:16; Status DC Ondansetron HCl (Zofran) 4 mg PRN Q8HRS PRN IV NAUSEA/VOMITING; Start 03/29/20 at 00:30; Stop 03/30/20 at 00:29 Cephalexin HCl (Keflex) 1,000 mg 1X ONCE PO Last administered on 03/29/20at 01:34; Start 03/29/20 at 00:30; Stop 03/29/20 at 00:31; Status DC Acetaminophen/ Hydrocodone Bitart (Lortab 5/325) 1 tab 1X ONCE PO Last administered on 03/29/20at 01:45; Start 03/29/20 at 01:45; Stop 03/29/20 at 01:46; Status DC Active Scripts Active Reported Lidocaine PATCH (Lidocaine) 1 Each Adh..patch 1 Each TP DAILY REMOVE AFTER 12 HOURS Cyclobenzaprine Hcl 5 Mg Tablet 5 Mg PO TID Premarin (Estrogens, Conjugated) 0.3 Mg Tablet Unknown Dose PO DAILY Trulicity (Dulaglutide) 0.75 Mg/0.5 Ml Pen.injctr Unknown Dose SQ WEEKLYAC Tramadol Hcl 50 Mg Tablet 50 Mg PO DAILY PRN Albuterol Sulfate Neb Soln (Albuterol Sulfate) 2.5 Mg/3 Ml Vial.neb 1 Vial NEB QID Allergies Allergies: Coded Allergies: povidone-iodine (Verified Allergy, Mild, rash, 02/03/17) soap (Verified Allergy, Mild, rash, 02/03/17) ROS General: YES: Chills, Fatigue, Malaise; No: Night Sweats, Appetite, Other PSYCHOLOGICAL ROS: YES: Anxiety; No: Behavioral Disorder, Concentration difficultie, Decreased libido, Depression, Disorientation, Hallucinations, Hostility, Irritablity, Memory difficulties, Mood Swings, Obsessive thoughts, Physical abuse, Sexual abuse, Sleep disturbances, Suicidal ideation, Other Eyes: No Blurry vision, No Decreased vision, No Double vision, No Dry eyes, No Excessive tearing, No Eye Pain, No Itchy Eyes, No Loss of vision, No Photophobia, No Scotomata, No Uses contacts, No Uses glasses, No Other HEENT: No: Heacaches, Visual Changes, Hearing change, Nasal congestion, Nasal discharge, Oral lesions, Sinus pain, Sore Throat, Epistaxis, Sneezing, Snoring, Tinnitus, Vertigo, Vocal changes, Other ALLERGY AND IMMUNOLOGY: No: Hives, Insect Bite Sensitivity, Itchy/Watery Eyes, Nasal Congestion, Post Nasal Drip, Seasonal Allergies, Other Hematological and Lymphatic: No: Bleeding Problems, Blood Clots, Blood Transfusions, Brusing, Night Sweats, Pallor, Swollen Lymph Nodes, Other ENDOCRINE: No: Breast Changes, Galactorrhea, Hair Pattern Changes, Hot Flashes, Malaise/lethargy, Mood Swings, Palpitations, Polydipsia/polyuria, Skin Changes, Temperature Intolerance, Unexpected Weight Changes, Other Breast: No New/Changing Breast Lumps, No Nipple changes, No Nipple discharge, No Other Respiratory: YES: Cough, Shortness of breath; No: Hemoptysis, Orthopnea, Pleuritic Pain, SOB with excertion, Sputum Changes, Stridor, Tachypnea, Wheezing, Other Cardiovascular: No Chest Pain, No Palpitations, No Orthopnea, No Paroxysmal No c. Dyspnea, No Edema, No Lt Headedness, No Other Gastrointestinal: Yes Nausea; No Vomiting, No Abdominal Pain, No Diarrhea, No Constipation, No Melena, No Hematochezia, No Other Genitourinary: No Dysuria, No Frequency, No Incontinence, No Hematuria, No Retention, No Discharge, No Urgency, No Pain, No Flank Pain, No Other, No , No , No , No , No , No , No Musculoskeletal: Yes Gait Disturbance, Yes Joint Pain, Yes Muscular Weakness; No Joint Stiffness, No Joint Swelling, No Muscle Pain, No Pain In:, No Swelling In:, No Other Neurological: Yes Gait Disturbance, Yes Tremors; No Behavorial Changes, No Bowel/Bladder ControlChng, No Confusion, No Dizziness, No Headaches, No Impaired Coord/balance, No Memory Loss, No Numbness/Tingling, No Seizures, No Speech Problems, No Visual Changes, No Weakness, No Other Skin: No Dry Skin, No Eczema, No Hair Changes, No Lumps, No Mole Changes, No Mottling, No Nail Changes, No Pruritus, No Rash, No Skin Lesion Changes, No Other, No Acne Physical Exam General: Alert, Oriented X3, Cooperative, mild distress HEENT: Atraumatic, PERRLA, EOMI, Mucous membr. moist/pink Lungs: Clear to auscultation, Normal air movement Heart: S1S2, RRR, no thrills, no rubs, no gallops, no murmurs Extremities: No clubbing, No cyanosis, No edema, Normal pulses, No tenderness/s welling Skin: No rashes, No breakdown, No significant lesion Neuro: Normal speech, Normal tone, Sensation intact, Cranial nerves 3-12 NL, Reflexes 2+, Other Psych/Mental Status: Mental status NL, Mood NL Vitals Vitals Vital Signs Date Time Temp Pulse Resp B/P (MAP) Pulse Ox O2 Delivery O2 Flow Rate FiO2 03/29/20 07:41 99.2 84 20 99/66 (77) 96 Room Air 99.2 Labs Labs Laboratory Tests Test 03/28/20 22:50 03/28/20 23:08 Urine Collection Type Unknown Urine Color Yellow Urine Clarity Clear Urine pH 5.5 (<5.0-8.0) Urine Specific [place] >=1.030 (1.000-1.030) Urine Protein Negative mg/dL (NEG-TRACE) Urine Glucose (UA) Negative mg/dL (NEG) Urine Ketones (Stick) 15 mg/dL (NEG) Urine Blood Trace (NEG) Urine Nitrite Negative (NEG) Urine Bilirubin Negative (NEG) Urine Urobilinogen Dipstick 1.0 mg/dL (0.2 mg/dL) Urine Leukocyte Esterase Negative (NEG) Urine RBC Occ /HPF (0-2) Urine WBC 1-4 /HPF (0-4) Urine Squamous Epithelial Cells Many /LPF Urine Bacteria Moderate /HPF (0-FEW) Urine Mucus Marked /LPF White Blood Count 3.7 x10^3/uL (4.0-11.0) Red Blood Count 5.15 x10^6/uL (3.50-5.40) Hemoglobin 14.5 g/dL (12.0-15.5) Hematocrit 43.2 % (36.0-47.0) Mean Corpuscular Volume 84 fL (79-100) Mean Corpuscular Hemoglobin 28 pg (25-35) Mean Corpuscular Hemoglobin Concent 34 g/dL (31-37) Red Cell Distribution Width 13.6 % (11.5-14.5) Platelet Count 190 x10^3/uL (140-400) Neutrophils (%) (Auto) 68 % (31-73) Lymphocytes (%) (Auto) 26 % (24-48) Monocytes (%) (Auto) 6 % (0-9) Eosinophils (%) (Auto) 0 % (0-3) Basophils (%) (Auto) 1 % (0-3) Neutrophils # (Auto) 2.5 x10^3/uL (1.8-7.7) Lymphocytes # (Auto) 1.0 x10^3/uL (1.0-4.8) Monocytes # (Auto) 0.2 x10^3/uL (0.0-1.1) Eosinophils # (Auto) 0.0 x10^3/uL (0.0-0.7) Basophils # (Auto) 0.0 x10^3/uL (0.0-0.2) Sodium Level 135 mmol/L (136-145) Potassium Level 4.1 mmol/L (3.5-5.1) Chloride Level 98 mmol/L (98-107) Carbon Dioxide Level 31 mmol/L (21-32) Anion Gap 6 (6-14) Blood Urea Nitrogen 14 mg/dL (7-20) Creatinine 1.0 mg/dL (0.6-1.0) Estimated GFR (Cockcroft-Gault) 72.2 Glucose Level 175 mg/dL (70-99) Calcium Level 8.2 mg/dL (8.5-10.1) C-Reactive Protein, Quantitative 10.3 mg/L (0-3.3) Laboratory Tests Test 03/28/20 22:50 03/28/20 23:08 Urine Collection Type Unknown Urine Color Yellow Urine Clarity Clear Urine pH 5.5 (<5.0-8.0) Urine Specific [place] >=1.030 (1.000-1.030) Urine Protein Negative mg/dL (NEG-TRACE) Urine Glucose (UA) Negative mg/dL (NEG) Urine Ketones (Stick) 15 mg/dL (NEG) Urine Blood Trace (NEG) Urine Nitrite Negative (NEG) Urine Bilirubin Negative (NEG) Urine Urobilinogen Dipstick 1.0 mg/dL (0.2 mg/dL) Urine Leukocyte Esterase Negative (NEG) Urine RBC Occ /HPF (0-2) Urine WBC 1-4 /HPF (0-4) Urine Squamous Epithelial Cells Many /LPF Urine Bacteria Moderate /HPF (0-FEW) Urine Mucus Marked /LPF White Blood Count 3.7 x10^3/uL (4.0-11.0) Red Blood Count 5.15 x10^6/uL (3.50-5.40) Hemoglobin 14.5 g/dL (12.0-15.5) Hematocrit 43.2 % (36.0-47.0) Mean Corpuscular Volume 84 fL (79-100) Mean Corpuscular Hemoglobin 28 pg (25-35) Mean Corpuscular Hemoglobin Concent 34 g/dL (31-37) Red Cell Distribution Width 13.6 % (11.5-14.5) Platelet Count 190 x10^3/uL (140-400) Neutrophils (%) (Auto) 68 % (31-73) Lymphocytes (%) (Auto) 26 % (24-48) Monocytes (%) (Auto) 6 % (0-9) Eosinophils (%) (Auto) 0 % (0-3) Basophils (%) (Auto) 1 % (0-3) Neutrophils # (Auto) 2.5 x10^3/uL (1.8-7.7) Lymphocytes # (Auto) 1.0 x10^3/uL (1.0-4.8) Monocytes # (Auto) 0.2 x10^3/uL (0.0-1.1) Eosinophils # (Auto) 0.0 x10^3/uL (0.0-0.7) Basophils # (Auto) 0.0 x10^3/uL (0.0-0.2) Sodium Level 135 mmol/L (136-145) Potassium Level 4.1 mmol/L (3.5-5.1) Chloride Level 98 mmol/L (98-107) Carbon Dioxide Level 31 mmol/L (21-32) Anion Gap 6 (6-14) Blood Urea Nitrogen 14 mg/dL (7-20) Creatinine 1.0 mg/dL (0.6-1.0) Estimated GFR (Cockcroft-Gault) 72.2 Glucose Level 175 mg/dL (70-99) Calcium Level 8.2 mg/dL (8.5-10.1) C-Reactive Protein, Quantitative 10.3 mg/L (0-3.3) Images Images CXR: Cardiomediastinal silhouette is enlarged. Hypoexpanded examination with mild linear opacities at lung bases. IMPRESSION: Hypoexpanded exam with mild linear opacities at lung bases. The most likely causes atelectasis but early infiltrate is not excluded. VTE Prophylaxis Ordered VTE Prophylaxis Devices: No VTE Pharmacological Prophylaxi: Yes Assessment/Plan Assessment/Plan A/P: Intractable back pain -acute on chronic, not responsive to Lidoderm patch and heat, worse after recent LESI, subdural hematoma or abscesses possibly given her fevers. Leg weakness and spasms -no saddle anesthesia or urinary or fecal incontinence, and there is no immediate neurological concern, however MRI with contrast to be appropriate to rule out epidural abscess or epidural hematoma given her symptoms after recent LESI. Fevers -no COVID-19 contacts, she does have a 26-year-old son and 15-year-old at home her 26-year-old son. 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 Anxiety - cont meds, would overall advise to reduce and cut out xanax and use alternative medication that does not have as many side effects Asthma - prn inhaler Diabetes-Type II - basal bolus plus insulin Chronic back pain - s/p recent LESI FEN - ADA diet PPX - SCDs FULL CODE Dispo - inpatient Justifications for Admission Other Justification LEIGHANN TOUSSAINT MD Mar 29, 2020 08:39
[2020-03-29] MEDS ORDERED: traMADol 50 MG TABLET PO PRN (08:45)
[2020-03-29] MEDS ORDERED: DEXTROSE 50% 25 GM / 50ML DISP.SYRIN. IV PRN (08:45)
[2020-03-29] MEDS: INSULIN LISPRO 300 UNITS/3 ML VIAL. SQ SCH ×4 (08:45→21:00)
[2020-03-29] MEDS ORDERED: ALBUTEROL SULFATE 2.5 MG/3 ML NEBU. NEB SCH ×2 (09:00)
[2020-03-29] MEDS ORDERED: ALBUTEROL SULFATE 2.5 MG/3 ML NEBU. NEB PRN (09:30)
[2020-03-29] MEDS: ENOXAPARIN 40 MG/0.4 ML SYRINGE. SQ SCH (09:51)
[2020-03-29] MEDS: LIDOCAINE (700MG/PATCH) PATCH. TP SCH (09:51)
[2020-03-29 10:26] LABS: PROTHROMBIN TIME PATIENT 12.9 SEC (11.7-14.0)
[2020-03-29 10:47] LABS: ALBUMIN/GLOBULIN RATIO 0.7 (1.0-1.7); GFR 72.2; TOTAL BILIRUBIN 0.4 mg/dL (0.2-1.0); TOTAL PROTEIN 7.3 g/dL (6.4-8.2)
[2020-03-29 10:50] LABS: D-DIMER 0.61 ug/mlFEU (0.00-0.50)
[2020-03-29 11:25] VITALS: BP 96/54
[2020-03-29] MEDS: ACETAMINOPHEN 325 MG TABLET. PO PRN ×2 (12:11→20:35)
[2020-03-29] MEDS: CYCLOBENZAPRINE 10 MG TABLET. PO PRN ×2 (14:24→20:35)
[2020-03-29] MEDS: ONDANSETRON PF 4 MG/2 ML VIAL. IV PRN (14:35)
[2020-03-29 15:29] VITALS: BP 114/68
--- NOTE | 2020-03-29 16:52 | NUR ---
SW following. Spoke with RN and reviewed chart. Pt from home on a regular diet and room air. Pt on IV Dextrose. Pt is COVID pending. PT has been ordered. SW following.
[2020-03-29 19:00] VITALS: BP 88/58
[2020-03-29] MEDS: PATCH REMOVAL. MC SCH (21:00)
[2020-03-29 23:00] VITALS: BP 97/62
[2020-03-30 03:00] VITALS: BP 88/57
[2020-03-30] MEDS: ACETAMINOPHEN 325 MG TABLET. PO PRN ×3 (03:28→20:45)
[2020-03-30 03:45] LABS: BASO % 0 % (0-3); EOS % 0 % (0-3); HEMOGLOBIN 13.2 g/dL (12.0-15.5); LYMPH # 0.9 x10^3/uL (1.0-4.8); LYMPH % 25 % (24-48); MEAN CORPUSCULAR HEMOGLOBIN 28 pg (25-35); MEAN CORPUSCULAR HGB CONC 33 g/dL (31-37); MEAN CORPUSCULAR VOLUME 85 fL (79-100); MONO # 0.2 x10^3/uL (0.0-1.1); MONO % 5 % (0-9); NEUT # 2.4 x10^3/uL (1.8-7.7); NEUT % 70 % (31-73); PLATELET COUNT 147 x10^3/uL (140-400); RED BLOOD COUNT 4.72 x10^6/uL (3.50-5.40); RED CELL DISTRIBUTION WIDTH 13.5 % (11.5-14.5); WHITE BLOOD COUNT 3.5 x10^3/uL (4.0-11.0)
[2020-03-30] MEDS: CYCLOBENZAPRINE 10 MG TABLET. PO PRN ×2 (04:39→20:58)
[2020-03-30 04:48] LABS: ALBUMIN 2.9 g/dL (3.4-5.0); ALBUMIN/GLOBULIN RATIO 0.7 (1.0-1.7); CREATININE 1.1 mg/dL (0.6-1.0); GFR 64.7; POTASSIUM 4.3 mmol/L (3.5-5.1); TOTAL BILIRUBIN 0.3 mg/dL (0.2-1.0); TOTAL PROTEIN 7.1 g/dL (6.4-8.2)
[2020-03-30 07:25] VITALS: BP 100/56
[2020-03-30] MEDS: ENOXAPARIN 40 MG/0.4 ML SYRINGE. SQ SCH ×2 (09:16→20:45)
[2020-03-30] MEDS: LIDOCAINE (700MG/PATCH) PATCH. TP SCH (09:16)
[2020-03-30] MEDS: INSULIN LISPRO 300 UNITS/3 ML VIAL. SQ SCH ×4 (09:17→21:00)
[2020-03-30] MEDS ORDERED: traMADol 50 MG TABLET PO PRN (11:15)
[2020-03-30 11:34] VITALS: BP 110/53
[2020-03-30] MEDS: traMADol 50 MG TABLET PO PRN ×2 (12:07→20:59)
--- NOTE | 2020-03-30 12:30 | NUR ---
Pt asked if nursing staff could run debit card to her family member in order to "pay rent." Pt handed this RN one debit card with a picture of person on it and stated that her family member is in a black chevy impala. This RN handed debit card to GAETANO Salinas and she brought it to the family member at the main entrance.
[2020-03-30 15:06] VITALS: BP 120/62
[2020-03-30] MEDS ORDERED: ORPHENADRINE CITRATE 60 MG/2 ML VIAL. IM ONE (15:30)
[2020-03-30] MEDS ORDERED: diazePAM 2 MG TABLET PO PRN (15:30)
--- NOTE | 2020-03-30 15:32 | PDOC ---
[facility] PROGRESS NOTE Date of Service DOS: DATE: 03/30/20 TIME: 15:23 Chief Complaint Chief Complaint A/P: Intractable back pain -acute on chronic, not responsive to Lidoderm patch and heat, worse after recent LESI, subdural hematoma or abscesses possibly given her fevers. Leg weakness and spasms -no saddle anesthesia or urinary or fecal incontinence, and there is no immediate neurological concern, however MRI with contrast to be appropriate to rule out epidural abscess or epidural hematoma given her symptoms after recent LESI. COVID 19 -not requiring oxygen, will place on Lovenox. No indication for steroids or plasma will continue to monitor O2 needs. her only steroid indicat ion may actually be for her back pain Sepsis - 2/2 COVID 19 -no COVID-19 contacts, she does have a 26-year-old son and 15-year-old at home her 26-year-old son. 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 Anxiety - cont meds, would overall advise to reduce and cut out xanax and use alternative medication that does not have as many side effects Asthma - prn inhaler Diabetes-Type II - basal bolus plus insulin Chronic back pain - s/p recent LESI FEN - ADA diet PPX - SCDs FULL CODE Dispo - inpatient History of Present Illness History of Present Illness Ms Price (Bethany-Bethany) is a 44 yo F w/ PMHx Anxiety, Asthma, Diabetes-Type II, chronic lower back pain who presents with multiple complaints including objective fever at home of 100.7 F associated with low back pain status post epidural injections recently, most recent on 03/20/2020. She also c/o generalized body aches. Patient states she has had a documented temperature every day for the past 5 days, temp as high as 102F. She notes increased back pain over her post procedure area from LESI, though no obvious cellulitis noted on examination. Denies any trauma or injury. Does report a mild sore throat only when she coughs. Denies dysphonia or pain with swallowing. Does note body aches. Does note mild chest pain and back pain she attributes to aching sensation. Denies urinary symptoms. States she has a history of hysterectomy and bladder sling, however. Denies vomiting. Does note some nausea. Denies abdominal pain. Patient denies any urinary retention, stool incontinence, saddle anesthesia, but she does notice bilateral leg spasms that she cannot control in thighs and calves and also some weakness to the bilateral legs. CXR hypoexpanded exam with mild linear opacities at lung bases. Labs significant for WBC 3.7, Hb 14.5, platelets 190, NA 135, K4.1, mag 2.1, BUN 14, CR 1, glucose 175, CA 10.3, CRP elevated at 10.3. Given Keflex in ED. COVID swab obtained and returned positive. Urine culture returned with normal genitourinary danyell. Febrile to 101 F this morning. She still having a lot of back pain although less spasming still weak in both legs and feeling unsteady. She has a slight cough. No O2 needs. Sad about her COVID 19 status. Vitals/I&O Vitals/I&O: Vital Signs Date Time Temp Pulse Resp B/P (MAP) Pulse Ox O2 Delivery O2 Flow Rate FiO2 03/30/20 15:06 99.4 68 18 120/62 (81) 99 Room Air 99.4 I & O 03/29/20 03/29/20 03/30/20 15:00 23:00 07:00 Intake Total 450 ml 390 ml 1000 ml Balance 450 ml 390 ml 1000 ml Physical Exam General: Alert, Oriented X3, Cooperative, mild distress Extremities: No clubbing, No cyanosis, No edema, Normal pulses, No tenderness/swelling Skin: No rashes, No breakdown, No significant lesion Labs Labs: Laboratory Tests Test 03/29/20 16:29 03/29/20 21:19 03/30/20 03:30 03/30/20 07:54 Glucose (Fingerstick) 208 mg/dL (70-99) 192 mg/dL (70-99) 192 mg/dL (70-99) White Blood Count 3.5 x10^3/uL (4.0-11.0) Red Blood Count 4.72 x10^6/uL (3.50-5.40) Hemoglobin 13.2 g/dL (12.0-15.5) Hematocrit 40.0 % (36.0-47.0) Mean Corpuscular Volume 85 fL (79-100) Mean Corpuscular Hemoglobin 28 pg (25-35) Mean Corpuscular Hemoglobin Concent 33 g/dL (31-37) Red Cell Distribution Width 13.5 % (11.5-14.5) Platelet Count 147 x10^3/uL (140-400) Neutrophils (%) (Auto) 70 % (31-73) Lymphocytes (%) (Auto) 25 % (24-48) Monocytes (%) (Auto) 5 % (0-9) Eosinophils (%) (Auto) 0 % (0-3) Basophils (%) (Auto) 0 % (0-3) Neutrophils # (Auto) 2.4 x10^3/uL (1.8-7.7) Lymphocytes # (Auto) 0.9 x10^3/uL (1.0-4.8) Monocytes # (Auto) 0.2 x10^3/uL (0.0-1.1) Eosinophils # (Auto) 0.0 x10^3/uL (0.0-0.7) Basophils # (Auto) 0.0 x10^3/uL (0.0-0.2) Sodium Level 139 mmol/L (136-145) Potassium Level 4.3 mmol/L (3.5-5.1) Chloride Level 103 mmol/L (98-107) Carbon Dioxide Level 32 mmol/L (21-32) Anion Gap 4 (6-14) Blood Urea Nitrogen 15 mg/dL (7-20) Creatinine 1.1 mg/dL (0.6-1.0) Estimated GFR (Cockcroft-Gault) 64.7 BUN/Creatinine Ratio 14 (6-20) Glucose Level 170 mg/dL (70-99) Calcium Level 8.0 mg/dL (8.5-10.1) Total Bilirubin 0.3 mg/dL (0.2-1.0) Aspartate Amino Transf (AST/SGOT) 35 U/L (15-37) Alanine Aminotransferase (ALT/SGPT) 42 U/L (14-59) Alkaline Phosphatase 60 U/L (46-116) Total Protein 7.1 g/dL (6.4-8.2) Albumin 2.9 g/dL (3.4-5.0) Albumin/Globulin Ratio 0.7 (1.0-1.7) Test 03/30/20 10:30 Glucose (Fingerstick) 225 mg/dL (70-99) Assessment and Plan Assessmemt and Plan Problems Medical Problems: (1) Back pain Status: Acute (2) Bacteria in urine Status: Acute (3) Fever Status: Acute Comment Review of Relevant I have reviewed the following items karolina (where applicable) has been applied. Medications: Current Medications Medications (Trade) Dose Ordered Sig/Aminata Route PRN Reason Start Time Stop Time Status Last Admin Dose Admin Tramadol HCl (Ultram) 50 mg PRN Q6HRS PRN PO MODERATE PAIN 03/30/20 12:00 03/30/20 12:07 Justifications for Admission Other Justification LEIGHANN TOUSSAINT MD Mar 30, 2020 15:32
[2020-03-30] MEDS ORDERED: MORPHINE SULFATE 2 MG/ML VIAL. IV PRN (16:00)
[2020-03-30] MEDS ORDERED: ENOXAPARIN 40 MG/0.4 ML SYRINGE. SQ SCH (16:00)
[2020-03-30] MEDS: ASCORBIC ACID 500 MG TABLET PO SCH (16:14)
[2020-03-30] MEDS: ZINC SULFATE 220 MG CAPSULE. PO SCH (16:14)
[2020-03-30 19:00] VITALS: BP 101/57
[2020-03-30] MEDS: PATCH REMOVAL. MC SCH (21:00)
[2020-03-30 23:00] VITALS: BP 86/52
[2020-03-31] VITALS (7 sets, daily range): BP systolic 91–106; BP diastolic 51–59
[2020-03-31] MEDS: ACETAMINOPHEN 325 MG TABLET. PO PRN ×3 (05:01→23:06)
[2020-03-31] MEDS: INSULIN LISPRO 300 UNITS/3 ML VIAL. SQ SCH ×4 (08:00→21:48)
[2020-03-31] MEDS: ENOXAPARIN 40 MG/0.4 ML SYRINGE. SQ SCH ×2 (08:26→21:09)
[2020-03-31] MEDS: LIDOCAINE (700MG/PATCH) PATCH. TP SCH (08:26)
[2020-03-31] MEDS: ASCORBIC ACID 500 MG TABLET PO SCH (08:26)
[2020-03-31] MEDS: ZINC SULFATE 220 MG CAPSULE. PO SCH (08:26)
--- NOTE | 2020-03-31 09:21 | PDOC ---
[facility] [facility] PROGRESS NOTE Date of Service DOS: DATE: 03/31/20 TIME: 09:20 Chief Complaint Chief Complaint A/P: Intractable back pain -acute on chronic, not responsive to Lidoderm patch and heat, worse after recent LESI, subdural hematoma or abscesses possibly given her fevers. Leg weakness and spasms -no saddle anesthesia or urinary or fecal incontinence, and there is no immediate neurological concern, however MRI with contrast to be appropriate to rule out epidural abscess or epidural hematoma given her symptoms after recent LESI. COVID 19 -not requiring oxygen, will place on Lovenox. No indication for steroids or plasma will continue to monitor O2 needs. her only steroid indicat ion may actually be for her back pain Sepsis - 2/2 COVID 19 -no COVID-19 contacts, she does have a 26-year-old son and 15-year-old at home her 26-year-old son. 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 Will obtain blood cultures Anxiety - cont meds, would overall advise to reduce and cut out xanax and use alternative medication that does not have as many side effects Asthma - prn inhaler Diabetes-Type II - basal bolus plus insulin Chronic back pain - s/p recent LESI FEN - ADA diet PPX - SCDs FULL CODE Dispo - inpatient History of Present Illness History of Present Illness Ms Price (Bethany-Bethany) is a 44 yo F w/ PMHx Anxiety, Asthma, Diabetes-Type II, chronic lower back pain who presents with multiple complaints including objective fever at home of 100.7 F associated with low back pain status post epidural injections recently, most recent on 03/20/2020. She also c/o generalized body aches. Patient states she has had a documented temperature every day for the past 5 days, temp as high as 102F. She notes increased back pain over her post procedure area from LESI, though no obvious cellulitis noted on examination. Denies any trauma or injury. Does report a m ild sore throat only when she coughs. Denies dysphonia or pain with swallowing. Does note body aches. Does note mild chest pain and back pain she attributes to aching sensation. Denies urinary symptoms. States she has a history of hysterectomy and bladder sling, however. Denies vomiting. Does note some nausea. Denies abdominal pain. Patient denies any urinary retention, stool incontinence, saddle anesthesia, but she does notice bilateral leg spasms that she cannot control in thighs and calves and also some weakness to the bilateral legs. CXR hypoexpanded exam with mild linear opacities at lung bases. Labs significant for WBC 3.7, Hb 14.5, platelets 190, NA 135, K4.1, mag 2.1, BUN 14, CR 1, glucose 175, CA 10.3, CRP elevated at 10.3. Given Keflex in ED. COVID swab obtained and returned positive. Urine culture returned with normal genitourinary danyell. 03/30: Febrile to 101 F this morning. She still having a lot of back pain although less spasming still weak in both legs and feeling unsteady. She has a slight cough, no O2 needs. 03/31: Febrile to 101 F overnight. Still having lower extremity weakness and back pain. No O2 needs. Cannot return home with her family as the were not COVID-19 positive and has a son undergoing chemotherapy. Still febrile at 101 F overnight. Weakness and back pain are improving. Still with no O2 needs. She has no safe place to go on discharge no one to care for her children. She does have a cough today that is new and some upset stomach. Vitals/I&O Vitals/I&O: Vital Signs Date Time Temp Pulse Resp B/P (MAP) Pulse Ox O2 Delivery O2 Flow Rate FiO2 03/31/20 07:00 100.0 97 16 97/51 (66) 98 Room Air 100.0 I & O 03/30/20 03/30/20 03/31/20 15:00 23:00 07:00 Intake Total 250 ml 480 ml 0 ml Balance 250 ml 480 ml 0 ml Physical Exam General: Alert, Oriented X3, Cooperative, mild distress Extremities: No clubbing, No cyanosis, No edema, Normal pulses, No tenderness/swelling Skin: No rashes, No breakdown, No significant lesion Labs Labs: Laboratory Tests Test 03/30/20 10:30 03/30/20 15:57 03/30/20 21:07 03/31/20 08:15 Glucose (Fingerstick) 225 mg/dL (70-99) 166 mg/dL (70-99) 141 mg/dL (70-99) 155 mg/dL (70-99) Assessment and Plan Assessmemt and Plan Problems Medical Problems: (1) Back pain Status: Acute (2) Bacteria in urine Status: Acute (3) Fever Status: Acute Comment Review of Relevant I have reviewed the following items karolina (where applicable) has been applied. Medications: Current Medications Medications (Trade) Dose Ordered Sig/Aminata Route PRN Reason Start Time Stop Time Status Last Admin Dose Admin Tramadol HCl (Ultram) 50 mg PRN Q6HRS PRN PO MODERATE PAIN 03/30/20 12:00 03/30/20 20:59 Orphenadrine Citrate (Norflex) 60 mg 1X ONCE IM 03/30/20 15:30 03/30/20 15:31 DC 03/30/20 16:14 Zinc Sulfate (Orazinc) 220 mg DAILY PO 03/30/20 15:30 03/31/20 08:26 Ascorbic Acid (Vitamin C) 500 mg DAILY PO 03/30/20 15:30 03/31/20 08:26 Morphine Sulfate (Morphine Sulfate) 2 mg PRN Q4HRS PRN IV PAIN 03/30/20 16:00 03/30/20 16:18 Enoxaparin Sodium (Lovenox 40mg Syringe) 40 mg Q12HR SQ 03/30/20 21:00 03/31/20 08:26 Justifications for Admission Other Justification LEIGHANN TOUSSAINT MD Mar 31, 2020 09:21
[2020-03-31] MEDS ORDERED: CYCLOBENZAPRINE 10 MG TABLET. PO PRN ×2 (09:30→13:15)
[2020-03-31] MEDS: traMADol 50 MG TABLET PO PRN (12:08)
[2020-03-31] MEDS ORDERED: IV NORMAL SALINE 1000ML BAG 1,000 ML IV ONE (13:15)
--- NOTE | 2020-03-31 13:29 | CONS ---
DATE OF CONSULTATION: 03/31/2020 REASON FOR CONSULTATION: I was asked to see this 44-year-old lady for COVID-19. HISTORY OF PRESENT ILLNESS: She is a lifelong nonsmoker. She has asthma. She is on Qvar and albuterol. Her asthma has been under good control. She uses albuterol once every 1-2 months. She has not felt well for the past week, she has had fever, diarrhea and back pain. She denies shortness of breath. She has occasional cough, which is not worse than before. PAST MEDICAL HISTORY: Asthma, diabetes mellitus, chronic back pain. ALLERGIES: IODINE, SOAP. MEDICATIONS: Currently, she is on Lovenox 40 mg subcutaneous every 12 hours, vitamin C, morphine, Valium, Ultram, albuterol p.r.n. SOCIAL HISTORY: She is a lifelong nonsmoker. FAMILY HISTORY: Hypertension. REVIEW OF SYSTEMS: As mentioned as above, other systems otherwise negative. PHYSICAL EXAMINATION: VITAL SIGNS: Her room air O2 saturation is 95%, respiratory rate 16, heart rate 90, blood pressure 91/58, temperature 99.5, maximum temperature 101.1. HEENT: Normocephalic, atraumatic. GENERAL: She appears comfortable. She is alert and oriented. CARDIOVASCULAR: Regular rate and rhythm. LUNGS: There is no accessory muscle use. There is no audible wheezing. ABDOMEN: There is no paradoxical abdominal motion. SKIN: There is no rash or edema. LABORATORY DATA: Chest x-ray does not show infiltrate. COVID-19 is positive. WBC 3.5, hemoglobin 13.2, platelets 147. D-dimer 0.61. Sodium 139, potassium 4.3, chloride 103, CO2 32, BUN 15, creatinine 1.1. Procalcitonin less than 0.10, which is within normal limits. IMPRESSION: 1. COVID-19 positive without any pulmonary symptoms. She is on room air. 2. Asthma, stable. 3. Diabetes mellitus. 4. Back pain? etiology. PLAN AND RECOMMENDATIONS: 1. Titrate FiO2 to keep O2 saturation more than 94%. 2. Bronchodilator as needed. 3. Monitor her respiratory status very closely. At this point, she does not have any pulmonary symptoms, so she would not need steroid. 4. She does have back pain. CTs of lumbar spine and thoracic spine are ordered, but since she is COVID positive, it is on hold. 5. May benefit from ID consultation. 6. The findings and recommendations were discussed with the patient and RN. Thank you very much for allowing me to participate in care of this very nice lady. MCKENNA ANDINO M.D. DR: Shruthi JOB#: [id number] / [id number]
--- NOTE | 2020-03-31 15:06 | NUR ---
Transferred care to JAZMIN Amanda.
[2020-03-31] MEDS: PATCH REMOVAL. MC SCH (21:00)
[2020-03-31] MEDS: ONDANSETRON PF 4 MG/2 ML VIAL. IV PRN (21:46)
[2020-03-31] MEDS: guaiFENesin DM 200MG/20MG 10 ML SYRUP PO PRN (21:46)
[2020-04-01 03:25] VITALS: BP 93/55
[2020-04-01 04:56] LABS: BASO % 0 % (0-3); EOS % 0 % (0-3); HEMATOCRIT 36.7 % (36.0-47.0); HEMOGLOBIN 12.1 g/dL (12.0-15.5); LYMPH # 0.7 x10^3/uL (1.0-4.8); LYMPH % 23 % (24-48); MEAN CORPUSCULAR HEMOGLOBIN 28 pg (25-35); MEAN CORPUSCULAR HGB CONC 33 g/dL (31-37); MEAN CORPUSCULAR VOLUME 84 fL (79-100); MONO # 0.1 x10^3/uL (0.0-1.1); MONO % 4 % (0-9); NEUT # 2.3 x10^3/uL (1.8-7.7); NEUT % 73 % (31-73); PLATELET COUNT 146 x10^3/uL (140-400); RED BLOOD COUNT 4.36 x10^6/uL (3.50-5.40); RED CELL DISTRIBUTION WIDTH 13.6 % (11.5-14.5); WHITE BLOOD COUNT 3.1 x10^3/uL (4.0-11.0)
[2020-04-01 05:24] LABS: ALBUMIN 2.5 g/dL (3.4-5.0); ALBUMIN/GLOBULIN RATIO 0.6 (1.0-1.7); CALCIUM 8.1 mg/dL (8.5-10.1); CREATININE 0.8 mg/dL (0.6-1.0); GFR 93.4; POTASSIUM 3.9 mmol/L (3.5-5.1); TOTAL BILIRUBIN 0.3 mg/dL (0.2-1.0); TOTAL PROTEIN 6.6 g/dL (6.4-8.2)
[2020-04-01 07:00] VITALS: BP 105/60
[2020-04-01] MEDS: guaiFENesin DM 200MG/20MG 10 ML SYRUP PO PRN (07:11)
[2020-04-01] MEDS: LIDOCAINE (700MG/PATCH) PATCH. TP SCH (07:11)
[2020-04-01] MEDS: ENOXAPARIN 40 MG/0.4 ML SYRINGE. SQ SCH ×2 (07:11→22:08)
[2020-04-01] MEDS: ASCORBIC ACID 500 MG TABLET PO SCH (07:11)
[2020-04-01] MEDS: ZINC SULFATE 220 MG CAPSULE. PO SCH (07:12)
[2020-04-01] MEDS: INSULIN LISPRO 300 UNITS/3 ML VIAL. SQ SCH ×4 (08:00→21:00)
--- NOTE | 2020-04-01 09:44 | PDOC ---
PULMONARY PROGRESS NOTES DATE: 04/01/20 TIME: 09:40 Subjective Pt. is on room air, reports non-productive cough no increased SOA, febrile overnight Vitals Vital Signs Date Time Temp Pulse Resp B/P (MAP) Pulse Ox O2 Delivery O2 Flow Rate FiO2 04/01/20 07:00 100.2 90 20 105/60 (75) 98 Room Air 100.2 Comments PT. seen during id- pandemic, visual exam preformed RRR R/A no rash no edema No use of accessory muscles Labs Laboratory Tests Test 03/30/20 10:30 03/30/20 15:57 03/30/20 21:07 03/31/20 08:15 Glucose (Fingerstick) 225 mg/dL (70-99) 166 mg/dL (70-99) 141 mg/dL (70-99) 155 mg/dL (70-99) Test 03/31/20 11:49 03/31/20 16:54 03/31/20 21:19 04/01/20 03:15 Glucose (Fingerstick) 181 mg/dL (70-99) 238 mg/dL (70-99) 204 mg/dL (70-99) White Blood Count 3.1 x10^3/uL (4.0-11.0) Red Blood Count 4.36 x10^6/uL (3.50-5.40) Hemoglobin 12.1 g/dL (12.0-15.5) Hematocrit 36.7 % (36.0-47.0) Mean Corpuscular Volume 84 fL (79-100) Mean Corpuscular Hemoglobin 28 pg (25-35) Mean Corpuscular Hemoglobin Concent 33 g/dL (31-37) Red Cell Distribution Width 13.6 % (11.5-14.5) Platelet Count 146 x10^3/uL (140-400) Neutrophils (%) (Auto) 73 % (31-73) Lymphocytes (%) (Auto) 23 % (24-48) Monocytes (%) (Auto) 4 % (0-9) Eosinophils (%) (Auto) 0 % (0-3) Basophils (%) (Auto) 0 % (0-3) Neutrophils # (Auto) 2.3 x10^3/uL (1.8-7.7) Lymphocytes # (Auto) 0.7 x10^3/uL (1.0-4.8) Monocytes # (Auto) 0.1 x10^3/uL (0.0-1.1) Eosinophils # (Auto) 0.0 x10^3/uL (0.0-0.7) Basophils # (Auto) 0.0 x10^3/uL (0.0-0.2) D-Dimer (Rachael) 0.41 ug/mlFEU (0.00-0.50) Sodium Level 139 mmol/L (136-145) Potassium Level 3.9 mmol/L (3.5-5.1) Chloride Level 105 mmol/L (98-107) Carbon Dioxide Level 28 mmol/L (21-32) Anion Gap 6 (6-14) Blood Urea Nitrogen 12 mg/dL (7-20) Creatinine 0.8 mg/dL (0.6-1.0) Estimated GFR (Cockcroft-Gault) 93.4 BUN/Creatinine Ratio 15 (6-20) Glucose Level 144 mg/dL (70-99) Calcium Level 8.1 mg/dL (8.5-10.1) Total Bilirubin 0.3 mg/dL (0.2-1.0) Aspartate Amino Transf (AST/SGOT) 39 U/L (15-37) Alanine Aminotransferase (ALT/SGPT) 45 U/L (14-59) Alkaline Phosphatase 54 U/L (46-116) C-Reactive Protein, Quantitative 31.0 mg/L (0-3.3) Total Protein 6.6 g/dL (6.4-8.2) Albumin 2.5 g/dL (3.4-5.0) Albumin/Globulin Ratio 0.6 (1.0-1.7) Test 04/01/20 07:29 Glucose (Fingerstick) 151 mg/dL (70-99) Laboratory Tests Test 03/31/20 11:49 03/31/20 16:54 03/31/20 21:19 04/01/20 03:15 Glucose (Fingerstick) 181 mg/dL (70-99) 238 mg/dL (70-99) 204 mg/dL (70-99) White Blood Count 3.1 x10^3/uL (4.0-11.0) Red Blood Count 4.36 x10^6/uL (3.50-5.40) Hemoglobin 12.1 g/dL (12.0-15.5) Hematocrit 36.7 % (36.0-47.0) Mean Corpuscular Volume 84 fL (79-100) Mean Corpuscular Hemoglobin 28 pg (25-35) Mean Corpuscular Hemoglobin Concent 33 g/dL (31-37) Red Cell Distribution Width 13.6 % (11.5-14.5) Platelet Count 146 x10^3/uL (140-400) Neutrophils (%) (Auto) 73 % (31-73) Lymphocytes (%) (Auto) 23 % (24-48) Monocytes (%) (Auto) 4 % (0-9) Eosinophils (%) (Auto) 0 % (0-3) Basophils (%) (Auto) 0 % (0-3) Neutrophils # (Auto) 2.3 x10^3/uL (1.8-7.7) Lymphocytes # (Auto) 0.7 x10^3/uL (1.0-4.8) Monocytes # (Auto) 0.1 x10^3/uL (0.0-1.1) Eosinophils # (Auto) 0.0 x10^3/uL (0.0-0.7) Basophils # (Auto) 0.0 x10^3/uL (0.0-0.2) D-Dimer (Rachael) 0.41 ug/mlFEU (0.00-0.50) Sodium Level 139 mmol/L (136-145) Potassium Level 3.9 mmol/L (3.5-5.1) Chloride Level 105 mmol/L (98-107) Carbon Dioxide Level 28 mmol/L (21-32) Anion Gap 6 (6-14) Blood Urea Nitrogen 12 mg/dL (7-20) Creatinine 0.8 mg/dL (0.6-1.0) Estimated GFR (Cockcroft-Gault) 93.4 BUN/Creatinine Ratio 15 (6-20) Glucose Level 144 mg/dL (70-99) Calcium Level 8.1 mg/dL (8.5-10.1) Total Bilirubin 0.3 mg/dL (0.2-1.0) Aspartate Amino Transf (AST/SGOT) 39 U/L (15-37) Alanine Aminotransferase (ALT/SGPT) 45 U/L (14-59) Alkaline Phosphatase 54 U/L (46-116) C-Reactive Protein, Quantitative 31.0 mg/L (0-3.3) Total Protein 6.6 g/dL (6.4-8.2) Albumin 2.5 g/dL (3.4-5.0) Albumin/Globulin Ratio 0.6 (1.0-1.7) Test 04/01/20 07:29 Glucose (Fingerstick) 151 mg/dL (70-99) Medications Active Scripts Medications Dose Route/Sig Max Daily Dose Days Date Category Dose Instructions Lidocaine PATCH (Lidocaine) 1 Each Adh..patch 1 Each TP DAILY 03/20/20 Reported REMOVE AFTER 12 HOURS Cyclobenzaprine Hcl 5 Mg Tablet 5 Mg PO TID 03/20/20 Reported Premarin (Estrogens, Conjugated) 0.3 Mg Tablet Unknown Dose PO DAILY 09/20/19 Reported Trulicity (Dulaglutide) 0.75 Mg/0.5 Ml Pen.injctr Unknown Dose SQ WEEKLYAC 09/20/19 Reported Tramadol Hcl 50 Mg Tablet 50 Mg PO DAILY PRN 09/20/19 Reported Albuterol Sulfate Neb Soln (Albuterol Sulfate) 2.5 Mg/3 Ml Vial.neb 1 Vial NEB QID 01/16/19 Reported Impression . IMPRESSION: 1. COVID-19 positive without any pulmonary symptoms. She is on room air. 2. Asthma, stable. 3. Diabetes mellitus. 4. Back pain? etiology. 5. elevated d-dimer- improved Plan . PLAN AND RECOMMENDATIONS: Titrate FiO2 to keep O2 saturation more than 94%. Bronchodilator symptomatic treatment of fever and cough Follow inflammatory markers Does not require steroids at this time DVT/GI PPX D/W GAIL ORO MD Apr 01, 2020 09:44
[2020-04-01] MEDS ORDERED: guaiFENesin ORAL 200 MG/10 ML LIQUID. PO PRN (09:45)
[2020-04-01 11:00] VITALS: BP 98/56
--- NOTE | 2020-04-01 11:28 | PDOC ---
PROGRESS NOTES Date of Service: DATE: 04/01/20 TIME: 11:26 Chief Complaint Chief Complaint IMPRESSION Intractable back pain -acute on chronic, not responsive to Lidoderm patch and heat, worse after recent LESI, subdural hematoma or abscesses possibly given her fevers. Leg weakness and spasms -no saddle anesthesia or urinary or fecal incontinence, and there is no immediate neurological concern, however MRI with contrast to be appropriate to rule out epidural abscess or epidural hematoma given her symptoms after recent LESI. COVID 19 -not requiring oxygen, will place on Lovenox. No indication for steroids or plasma will continue to monitor O2 needs. her only steroid indic ation may actually be for her back pain Sepsis - 2/2 COVID 19 -no COVID-19 contacts, she does have a 26-year-old son and 15-year-old at home her 26-year-old son. 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 Will obtain blood cultures Anxiety - cont meds, would overall advise to reduce and cut out xanax and use alternative medication that does not have as many side effects Asthma - prn inhaler Diabetes-Type II - basal bolus plus insulin Chronic back pain - s/p recent LESI PLAN FEN - ADA diet PPX - SCDs FULL CODE Dispo - inpatient PT/OT History of Present Illness History of Present Illness Ms Price (Alba) is a 44 yo F w/ PMHx Anxiety, Asthma, Diabetes-Type II, chronic lower back pain who presents with multiple complaints including objective fever at home of 100.7 F associated with low back pain status post epidural injections recently, most recent on 03/20/2020. She also c/o generalized body aches. Patient states she has had a documented temperature every day for the past 5 days, temp as high as 102F. She notes increased back pain over her post procedure area from LESI, though no obvious cellulitis noted on examination. Denies any trauma or injury. Does report a mild sore throat only when she coughs. Denies dysphonia or pain with swallowing. Does note body aches. Does note mild chest pain and back pain she attributes to aching sensation. Denies urinary symptoms. States she has a h istory of hysterectomy and bladder sling, however. Denies vomiting. Does note some nausea. Denies abdominal pain. Patient denies any urinary retention, stool incontinence, saddle anesthesia, but she does notice bilateral leg spasms that she cannot control in thighs and calves and also some weakness to the bilateral legs. CXR hypoexpanded exam with mild linear opacities at lung bases. Labs significant for WBC 3.7, Hb 14.5, platelets 190, NA 135, K4.1, mag 2.1, BUN 14, CR 1, glucose 175, CA 10.3, CRP elevated at 10.3. Given Keflex in ED. COVID swab obtained and returned positive. Urine culture returned with normal genitourinary danyell. 03/30: Febrile to 101 F this morning. She still having a lot of back pain although less spasming still weak in both legs and feeling unsteady. She has a slight cough, no O2 needs. 03/31: Febrile to 101 F overnight. Still having lower extremity weakness and back pain. No O2 needs. Cannot return home with her family as the were not COVID-19 positive and has a son undergoing chemotherapy. Still febrile at 101 F overnight. Weakness and back pain are improving. Still with no O2 needs. She has no safe place to go on discharge no one to care for her children. She does have a cough today that is new and some upset stomach. Vitals Vitals Vital Signs Date Time Temp Pulse Resp B/P (MAP) Pulse Ox O2 Delivery O2 Flow Rate FiO2 04/01/20 08:00 Room Air 04/01/20 07:00 100.2 90 20 105/60 (75) 98 100.2 Physical Exam General: Alert, Oriented X3, Cooperative, mild distress Heart: Regular rate, Normal S1 Lungs: Clear Abdomen: Normal bowel sounds, Soft Extremities: No clubbing, No cyanosis, No edema, Normal pulses, No tenderness/swelling Skin: No rashes, No breakdown, No significant lesion Labs LABS MRI of the lumbar spine without contrast 07/24/2019 CLINICAL HISTORY: Low back pain which radiates down the right leg. TECHNIQUE: Unenhanced T1-weighted and T2-weighted sagittal and axial and inversion recovery sagittal images the lumbar spine were obtained. FINDINGS: Comparison is made to radiographs of the lumbar spine dated 03/14/2018. Mild S-shaped curvature of the thoracolumbar spine is seen. Degenerative signal changes are seen involving the L3-4, L4-5 and L5-S1 discs. Degenerative signal changes are seen within the marrow surrounding these discs. Loss of height of the L5-S1 disc is noted. The conus medullaris is normal morphology, position, and signal characteristics. The L1-2 and L2-3 disc spaces are within normal limits. At the L3-4 and L4-5 disc spaces there are minimal to mild generalized disc bulges. Degenerative changes are seen involving the facet joints bilaterally. There is mild to moderate ligamentum flavum hypertrophy bilaterally. These findings do not result in significant central spinal canal or neural foraminal stenosis. At the L5-S1 disc space there is a mild generalized disc bulge. Superimposed on this disc bulge is a central/left paracentral focal disc protrusion. This measures 3 mm in AP diameter. Degenerative changes are seen involving the facet joints bilaterally. There is mild ligamentum flavum hypertrophy bilaterally. These findings when combined do not result in significant central spinal canal or neural foraminal stenosis. IMPRESSION: The changes of degenerative disc disease are seen involving the mid and lower lumbar spine. These findings do not result in significant central spinal canal or neural foraminal stenosis. Electronically signed by: Avel Sanchez MD (07/24/2019 12:31 PM) [id number] DICTATED and SIGNED BY: AVEL SANCHEZ MD DATE: 07/24/19 1231 Laboratory Tests Test 03/31/20 11:49 03/31/20 16:54 03/31/20 21:19 04/01/20 03:15 Glucose (Fingerstick) 181 mg/dL (70-99) 238 mg/dL (70-99) 204 mg/dL (70-99) White Blood Count 3.1 x10^3/uL (4.0-11.0) Red Blood Count 4.36 x10^6/uL (3.50-5.40) Hemoglobin 12.1 g/dL (12.0-15.5) Hematocrit 36.7 % (36.0-47.0) Mean Corpuscular Volume 84 fL (79-100) Mean Corpuscular Hemoglobin 28 pg (25-35) Mean Corpuscular Hemoglobin Concent 33 g/dL (31-37) Red Cell Distribution Width 13.6 % (11.5-14.5) Platelet Count 146 x10^3/uL (140-400) Neutrophils (%) (Auto) 73 % (31-73) Lymphocytes (%) (Auto) 23 % (24-48) Monocytes (%) (Auto) 4 % (0-9) Eosinophils (%) (Auto) 0 % (0-3) Basophils (%) (Auto) 0 % (0-3) Neutrophils # (Auto) 2.3 x10^3/uL (1.8-7.7) Lymphocytes # (Auto) 0.7 x10^3/uL (1.0-4.8) Monocytes # (Auto) 0.1 x10^3/uL (0.0-1.1) Eosinophils # (Auto) 0.0 x10^3/uL (0.0-0.7) Basophils # (Auto) 0.0 x10^3/uL (0.0-0.2) D-Dimer (Rachael) 0.41 ug/mlFEU (0.00-0.50) Sodium Level 139 mmol/L (136-145) Potassium Level 3.9 mmol/L (3.5-5.1) Chloride Level 105 mmol/L (98-107) Carbon Dioxide Level 28 mmol/L (21-32) Anion Gap 6 (6-14) Blood Urea Nitrogen 12 mg/dL (7-20) Creatinine 0.8 mg/dL (0.6-1.0) Estimated GFR (Cockcroft-Gault) 93.4 BUN/Creatinine Ratio 15 (6-20) Glucose Level 144 mg/dL (70-99) Calcium Level 8.1 mg/dL (8.5-10.1) Total Bilirubin 0.3 mg/dL (0.2-1.0) Aspartate Amino Transf (AST/SGOT) 39 U/L (15-37) Alanine Aminotransferase (ALT/SGPT) 45 U/L (14-59) Alkaline Phosphatase 54 U/L (46-116) C-Reactive Protein, Quantitative 31.0 mg/L (0-3.3) Total Protein 6.6 g/dL (6.4-8.2) Albumin 2.5 g/dL (3.4-5.0) Albumin/Globulin Ratio 0.6 (1.0-1.7) Test 04/01/20 07:29 Glucose (Fingerstick) 151 mg/dL (70-99) Assessment and Plan Assessmemt and Plan Problems Medical Problems: (1) Back pain Status: Acute (2) Bacteria in urine Status: Acute (3) Fever Status: Acute Comment Review of Relevant I have reviewed the following items karolina (where applicable) has been applied. Labs Laboratory Tests Test 03/30/20 15:57 03/30/20 21:07 03/31/20 08:15 03/31/20 11:49 Glucose (Fingerstick) 166 mg/dL (70-99) 141 mg/dL (70-99) 155 mg/dL (70-99) 181 mg/dL (70-99) Test 03/31/20 16:54 03/31/20 21:19 04/01/20 03:15 04/01/20 07:29 Glucose (Fingerstick) 238 mg/dL (70-99) 204 mg/dL (70-99) 151 mg/dL (70-99) White Blood Count 3.1 x10^3/uL (4.0-11.0) Red Blood Count 4.36 x10^6/uL (3.50-5.40) Hemoglobin 12.1 g/dL (12.0-15.5) Hematocrit 36.7 % (36.0-47.0) Mean Corpuscular Volume 84 fL (79-100) Mean Corpuscular Hemoglobin 28 pg (25-35) Mean Corpuscular Hemoglobin Concent 33 g/dL (31-37) Red Cell Distribution Width 13.6 % (11.5-14.5) Platelet Count 146 x10^3/uL (140-400) Neutrophils (%) (Auto) 73 % (31-73) Lymphocytes (%) (Auto) 23 % (24-48) Monocytes (%) (Auto) 4 % (0-9) Eosinophils (%) (Auto) 0 % (0-3) Basophils (%) (Auto) 0 % (0-3) Neutrophils # (Auto) 2.3 x10^3/uL (1.8-7.7) Lymphocytes # (Auto) 0.7 x10^3/uL (1.0-4.8) Monocytes # (Auto) 0.1 x10^3/uL (0.0-1.1) Eosinophils # (Auto) 0.0 x10^3/uL (0.0-0.7) Basophils # (Auto) 0.0 x10^3/uL (0.0-0.2) D-Dimer (Rachael) 0.41 ug/mlFEU (0.00-0.50) Sodium Level 139 mmol/L (136-145) Potassium Level 3.9 mmol/L (3.5-5.1) Chloride Level 105 mmol/L (98-107) Carbon Dioxide Level 28 mmol/L (21-32) Anion Gap 6 (6-14) Blood Urea Nitrogen 12 mg/dL (7-20) Creatinine 0.8 mg/dL (0.6-1.0) Estimated GFR (Cockcroft-Gault) 93.4 BUN/Creatinine Ratio 15 (6-20) Glucose Level 144 mg/dL (70-99) Calcium Level 8.1 mg/dL (8.5-10.1) Total Bilirubin 0.3 mg/dL (0.2-1.0) Aspartate Amino Transf (AST/SGOT) 39 U/L (15-37) Alanine Aminotransferase (ALT/SGPT) 45 U/L (14-59) Alkaline Phosphatase 54 U/L (46-116) C-Reactive Protein, Quantitative 31.0 mg/L (0-3.3) Total Protein 6.6 g/dL (6.4-8.2) Albumin 2.5 g/dL (3.4-5.0) Albumin/Globulin Ratio 0.6 (1.0-1.7) Laboratory Tests Test 03/31/20 11:49 03/31/20 16:54 03/31/20 21:19 04/01/20 03:15 Glucose (Fingerstick) 181 mg/dL (70-99) 238 mg/dL (70-99) 204 mg/dL (70-99) White Blood Count 3.1 x10^3/uL (4.0-11.0) Red Blood Count 4.36 x10^6/uL (3.50-5.40) Hemoglobin 12.1 g/dL (12.0-15.5) Hematocrit 36.7 % (36.0-47.0) Mean Corpuscular Volume 84 fL (79-100) Mean Corpuscular Hemoglobin 28 pg (25-35) Mean Corpuscular Hemoglobin Concent 33 g/dL (31-37) Red Cell Distribution Width 13.6 % (11.5-14.5) Platelet Count 146 x10^3/uL (140-400) Neutrophils (%) (Auto) 73 % (31-73) Lymphocytes (%) (Auto) 23 % (24-48) Monocytes (%) (Auto) 4 % (0-9) Eosinophils (%) (Auto) 0 % (0-3) Basophils (%) (Auto) 0 % (0-3) Neutrophils # (Auto) 2.3 x10^3/uL (1.8-7.7) Lymphocytes # (Auto) 0.7 x10^3/uL (1.0-4.8) Monocytes # (Auto) 0.1 x10^3/uL (0.0-1.1) Eosinophils # (Auto) 0.0 x10^3/uL (0.0-0.7) Basophils # (Auto) 0.0 x10^3/uL (0.0-0.2) D-Dimer (Rachael) 0.41 ug/mlFEU (0.00-0.50) Sodium Level 139 mmol/L (136-145) Potassium Level 3.9 mmol/L (3.5-5.1) Chloride Level 105 mmol/L (98-107) Carbon Dioxide Level 28 mmol/L (21-32) Anion Gap 6 (6-14) Blood Urea Nitrogen 12 mg/dL (7-20) Creatinine 0.8 mg/dL (0.6-1.0) Estimated GFR (Cockcroft-Gault) 93.4 BUN/Creatinine Ratio 15 (6-20) Glucose Level 144 mg/dL (70-99) Calcium Level 8.1 mg/dL (8.5-10.1) Total Bilirubin 0.3 mg/dL (0.2-1.0) Aspartate Amino Transf (AST/SGOT) 39 U/L (15-37) Alanine Aminotransferase (ALT/SGPT) 45 U/L (14-59) Alkaline Phosphatase 54 U/L (46-116) C-Reactive Protein, Quantitative 31.0 mg/L (0-3.3) Total Protein 6.6 g/dL (6.4-8.2) Albumin 2.5 g/dL (3.4-5.0) Albumin/Globulin Ratio 0.6 (1.0-1.7) Test 04/01/20 07:29 Glucose (Fingerstick) 151 mg/dL (70-99) Microbiology 03/28/20 Urine Culture - Final, Complete Medications Current Medications Diphenhydramine HCl (Benadryl) 25 mg 1X ONCE IVP Last administered on 03/28/20at 23:18; Start 03/28/20 at 23:15; Stop 03/28/20 at 23:16; Status DC Ondansetron HCl (Zofran) 4 mg 1X ONCE IVP Last administered on 03/28/20at 23:18; Start 03/28/20 at 23:15; Stop 03/28/20 at 23:16; Status DC Ondansetron HCl (Zofran) 4 mg PRN Q8HRS PRN IV NAUSEA/VOMITING; Start 03/29/20 at 00:30; Stop 03/29/20 at 08:39; Status DC Cephalexin HCl (Keflex) 1,000 mg 1X ONCE PO Last administered on 03/29/20at 01:34; Start 03/29/20 at 00:30; Stop 03/29/20 at 00:31; Status DC Acetaminophen/ Hydrocodone Bitart (Lortab 5/325) 1 tab 1X ONCE PO Last administered on 03/29/20at 01:45; Start 03/29/20 at 01:45; Stop 03/29/20 at 01:46; Status DC Insulin Human Lispro (HumaLOG) 0-9 UNITS TIDWMEALHC SQ Last administered on 03/31/20at 21:48; Start 03/29/20 at 08:45 Dextrose (Dextrose 50%-Water Syringe) 12.5 gm PRN Q15MIN PRN IV SEE COMMENTS; Start 03/29/20 at 08:45 Ondansetron HCl (Zofran) 4 mg PRN Q4HRS PRN IV NAUSEA/VOMITING Last administered on 03/31/20at 21:46; Start 03/29/20 at 08:45 Albuterol Sulfate (Ventolin Neb Soln) 2.5 mg QID NEB ; Start 03/29/20 at 09:00; Status Cancel Lidocaine (Lidoderm) 1 patch DAILY TP Last administered on 04/01/20at 07:11; Start 03/29/20 at 09:00 Tramadol HCl (Ultram) 50 mg DAILY PRN PO PAIN Last administered on 03/29/20at 14:24; Start 03/29/20 at 08:45; Stop 03/30/20 at 11:03; Status DC Acetaminophen (Tylenol) 650 mg PRN Q6HRS PRN PO MILD PAIN / TEMP > 100.3'F Last administered on 03/31/20at 23:06; Start 03/29/20 at 08:45 Enoxaparin Sodium (Lovenox 40mg Syringe) 40 mg Q24H SQ Last administered on 03/30/20at 09:16; Start 03/29/20 at 09:00; Stop 03/30/20 at 15:23; Status DC Albuterol Sulfate (Ventolin Neb Soln) 2.5 mg RTQID NEB ; Start 03/29/20 at 09:00; Stop 03/29/20 at 09:27; Status DC Miscellaneous (Lidoderm Patch Removal) 1 ea QHS MC ; Start 03/29/20 at 21:00 Albuterol Sulfate (Ventolin Neb Soln) 2.5 mg PRN Q4HRS PRN NEB SHORTNESS OF BREATH; Start 03/29/20 at 09:30 Cyclobenzaprine HCl (Flexeril) 5 mg TID PRN PRN PO MUSCLE SPASMS Last administered on 03/30/20at 20:58; Start 03/29/20 at 13:45; Stop 03/31/20 at 09:20; Status DC Tramadol HCl (Ultram) 50 mg PRN DAILY PRN PO MODERATE PAIN; Start 03/30/20 at 11:15; Stop 03/30/20 at 11:59; Status DC Tramadol HCl (Ultram) 50 mg PRN Q6HRS PRN PO MODERATE PAIN Last administered on 03/31/20at 12:08; Start 03/30/20 at 12:00 Enoxaparin Sodium (Lovenox 40mg Syringe) 40 mg Q12HR SQ ; Start 03/30/20 at 16:00; Status Cancel Orphenadrine Citrate (Norflex) 60 mg 1X ONCE IM Last administered on 03/30/20at 16:14; Start 03/30/20 at 15:30; Stop 03/30/20 at 15:31; Status DC Diazepam (Valium) 2 mg PRN DAILY PRN PO ANXIETY/Muscle spasms; Start 03/30/20 at 15:30 Zinc Sulfate (Orazinc) 220 mg DAILY PO Last administered on 04/01/20at 07:12; Start 03/30/20 at 15:30 Ascorbic Acid (Vitamin C) 500 mg DAILY PO Last administered on 04/01/20at 07:11; Start 03/30/20 at 15:30 Morphine Sulfate (Morphine Sulfate) 2 mg PRN Q4HRS PRN IV PAIN Last administered on 03/30/20at 16:18; Start 03/30/20 at 16:00 Enoxaparin Sodium (Lovenox 40mg Syringe) 40 mg Q12HR SQ Last administered on 04/01/20at 07:11; Start 03/30/20 at 21:00 Cyclobenzaprine HCl (Flexeril) 10 mg TID PRN PRN PO MUSCLE SPASMS; Start 03/31/20 at 09:30; Stop 03/31/20 at 13:05; Status DC Guaifenesin (Robitussin Dm) 10 ml PRN Q6HRS PRN PO COUGH Last administered on 04/01/20at 07:11; Start 03/31/20 at 09:30 Cyclobenzaprine HCl (Flexeril) 5 mg TID PRN PRN PO MUSCLE SPASMS; Start 03/31/20 at 13:15 Sodium Chloride 1,000 ml @ 1,000 mls/hr 1X ONCE IV Last administered on 03/31/20at 13:15; Start 03/31/20 at 13:15; Stop 03/31/20 at 14:14; Status DC Guaifenesin (Robitussin) 200 mg PRN Q4HRS PRN PO COUGH 1ST CHOICE; Start 04/01/20 at 09:45 Famotidine (Pepcid) 20 mg BID PO ; Start 04/01/20 at 10:30 Active Scripts Active Reported Lidocaine PATCH (Lidocaine) 1 Each Adh..patch 1 Each TP DAILY REMOVE AFTER 12 HOURS Cyclobenzaprine Hcl 5 Mg Tablet 5 Mg PO TID Premarin (Estrogens, Conjugated) 0.3 Mg Tablet Unknown Dose PO DAILY Trulicity (Dulaglutide) 0.75 Mg/0.5 Ml Pen.injctr Unknown Dose SQ WEEKLYAC Tramadol Hcl 50 Mg Tablet 50 Mg PO DAILY PRN Albuterol Sulfate Neb Soln (Albuterol Sulfate) 2.5 Mg/3 Ml Vial.neb 1 Vial NEB QID Vitals/I & O Vital Sign - Last 24 Hours 03/31/20 03/31/20 03/31/20 03/31/20 15:07 19:59 21:00 23:08 Temp 100.2 98.7 99.6 100.2 98.7 99.6 Pulse 82 89 90 Resp 16 16 17 B/P (MAP) 98/54 (69) 100/57 (71) 106/59 (75) Pulse Ox 93 94 95 O2 Delivery Room Air Room Air Room Air Room Air 04/01/20 04/01/20 04/01/20 03:25 07:00 08:00 Temp 99.9 100.2 99.9 100.2 Pulse 84 90 Resp 16 20 B/P (MAP) 93/55 (68) 105/60 (75) Pulse Ox 93 98 O2 Delivery Room Air Room Air Room Air Intake and Output 03/31/20 03/31/20 04/01/20 15:00 23:00 07:00 Intake Total 300 ml Output Total 200 ml Balance 100 ml Justicifation of Admission Dx: Justifications for Admission: Justification of Admission Dx: Yes LEILANI BUCKNER MD Apr 01, 2020 11:28
[2020-04-01] MEDS: FAMOTIDINE 20 MG TABLET. PO SCH ×2 (11:50→22:08)
[2020-04-01 15:00] VITALS: BP 96/55
[2020-04-01] MEDS: ACETAMINOPHEN 325 MG TABLET. PO PRN (15:59)
[2020-04-01] MEDS: PATCH REMOVAL. MC SCH (21:00)
[2020-04-01 22:18] VITALS: BP 97/57
[2020-04-02 03:21] VITALS: BP 98/51
[2020-04-02 07:55] VITALS: BP 107/68
[2020-04-02] MEDS: INSULIN LISPRO 300 UNITS/3 ML VIAL. SQ SCH ×2 (08:00→12:48)
--- NOTE | 2020-04-02 08:50 | PDOC ---
PROGRESS NOTES Date of Service: DATE: 04/02/20 TIME: 08:50 Chief Complaint Chief Complaint DISCHARGE DX Intractable back pain -acute on chronic, not responsive to Lidoderm patch and heat, worse after recent LESI, subdural hematoma or abscesses possibly given her fevers. Leg weakness and spasms -no saddle anesthesia or urinary or fecal incontinence, and there is no immediate neurological concern, however MRI with contrast to be appropriate to rule out epidural abscess or epidural hematoma given her symptoms after recent LESI. COVID 19 -not requiring oxygen, will place on Lovenox. No indication for steroids or plasma will continue to monitor O2 needs. her only steroid ind ication may actually be for her back pain Sepsis - 2/2 COVID 19 -no COVID-19 contacts, she does have a 26-year-old son and 15-year-old at home her 26-year-old son. 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 Will obtain blood cultures Anxiety - cont meds, would overall advise to reduce and cut out xanax and use alternative medication that does not have as many side effects Asthma - prn inhaler Diabetes-Type II - basal bolus plus insulin Chronic back pain - s/p recent LESI PLAN FEN - ADA diet PPX - SCDs FULL CODE Dispo - inpatient PT/OT pcxr 04/02 04/02 FEELS OK INSISTS ON D/C HOME TODAY 04/02 t max 101.2 04/01 d/w rn D/C PLANNING 32 MIN History of Present Illness History of Present Illness Ms Price (Bethany-Bethany) is a 44 yo F w/ PMHx Anxiety, Asthma, Diabetes-Type II, chronic lower back pain who presents with multiple complaints including objective fever at home of 100.7 F associated with low back pain status post epidural injections recently, most recent on 03/20/2020. She also c/o generalized body aches. Patient states she has had a documented temperature every day for the past 5 days, temp as high as 102F. She notes increased back pain over her post procedure area from LESI, though no obvious cellulitis noted on examination. Denies any trauma or injury. Does report a mild sore throat only when she coughs. Denies dysphonia or pain with swallowing. Does note body aches. Does note mild chest pain and back pain she attributes to aching sensation. Denies urinary symptoms. States she has a history of hysterectomy and bladder sling, however. Denies vomiting. Does note some nausea. Denies abdominal pain. Patient denies any urinary retention, stool incontinence, saddle anesthesia, but she does notice bilateral leg spasms that she cannot control in thighs and calve s and also some weakness to the bilateral legs. CXR hypoexpanded exam with mild linear opacities at lung bases. Labs significant for WBC 3.7, Hb 14.5, platelets 190, NA 135, K4.1, mag 2.1, BUN 14, CR 1, glucose 175, CA 10.3, CRP elevated at 10.3. Given Keflex in ED. COVID swab obtained and returned positive. Urine culture returned with normal genitourinary danyell. 03/30: Febrile to 101 F this morning. She still having a lot of back pain although less spasming still weak in both legs and feeling unsteady. She has a slight cough, no O2 needs. 03/31: Febrile to 101 F overnight. Still having lower extremity weakness and back pain. No O2 needs. Cannot return home with her family as the were not COVID-19 positive and has a son undergoing chemotherapy. Still febrile at 101 F overnight. Weakness and back pain are improving. Still with no O2 needs. She has no safe place to go on discharge no one to care for her children. She does have a cough today that is new and some upset stomach. Vitals Vitals Vital Signs Date Time Temp Pulse Resp B/P (MAP) Pulse Ox O2 Delivery O2 Flow Rate FiO2 04/02/20 07:55 98.9 99 16 107/68 (81) 96 Room Air 98.9 Physical Exam General: Alert, Oriented X3, Cooperative, No acute distress Heart: Regular rate, Normal S1 Lungs: Clear Abdomen: Normal bowel sounds, Soft Extremities: No clubbing, No cyanosis, No edema, Normal pulses, No tenderness/swelling Skin: No rashes, No breakdown, No significant lesion Labs LABS Laboratory Tests Test 04/01/20 12:16 04/01/20 17:23 04/01/20 22:16 9/8/20 08:19 Glucose (Fingerstick) 221 mg/dL (70-99) 151 mg/dL (70-99) 176 mg/dL (70-99) 133 mg/dL (70-99) Assessment and Plan Assessmemt and Plan Problems Medical Problems: (1) Back pain Status: Acute (2) Bacteria in urine Status: Acute (3) Fever Status: Acute Comment Review of Relevant I have reviewed the following items karolina (where applicable) has been applied. Labs Laboratory Tests Test 03/31/20 11:49 03/31/20 16:54 03/31/20 21:19 04/01/20 03:15 Glucose (Fingerstick) 181 mg/dL (70-99) 238 mg/dL (70-99) 204 mg/dL (70-99) White Blood Count 3.1 x10^3/uL (4.0-11.0) Red Blood Count 4.36 x10^6/uL (3.50-5.40) Hemoglobin 12.1 g/dL (12.0-15.5) Hematocrit 36.7 % (36.0-47.0) Mean Corpuscular Volume 84 fL (79-100) Mean Corpuscular Hemoglobin 28 pg (25-35) Mean Corpuscular Hemoglobin Concent 33 g/dL (31-37) Red Cell Distribution Width 13.6 % (11.5-14.5) Platelet Count 146 x10^3/uL (140-400) Neutrophils (%) (Auto) 73 % (31-73) Lymphocytes (%) (Auto) 23 % (24-48) Monocytes (%) (Auto) 4 % (0-9) Eosinophils (%) (Auto) 0 % (0-3) Basophils (%) (Auto) 0 % (0-3) Neutrophils # (Auto) 2.3 x10^3/uL (1.8-7.7) Lymphocytes # (Auto) 0.7 x10^3/uL (1.0-4.8) Monocytes # (Auto) 0.1 x10^3/uL (0.0-1.1) Eosinophils # (Auto) 0.0 x10^3/uL (0.0-0.7) Basophils # (Auto) 0.0 x10^3/uL (0.0-0.2) D-Dimer (Rachael) 0.41 ug/mlFEU (0.00-0.50) Sodium Level 139 mmol/L (136-145) Potassium Level 3.9 mmol/L (3.5-5.1) Chloride Level 105 mmol/L (98-107) Carbon Dioxide Level 28 mmol/L (21-32) Anion Gap 6 (6-14) Blood Urea Nitrogen 12 mg/dL (7-20) Creatinine 0.8 mg/dL (0.6-1.0) Estimated GFR (Cockcroft-Gault) 93.4 BUN/Creatinine Ratio 15 (6-20) Glucose Level 144 mg/dL (70-99) Calcium Level 8.1 mg/dL (8.5-10.1) Total Bilirubin 0.3 mg/dL (0.2-1.0) Aspartate Amino Transf (AST/SGOT) 39 U/L (15-37) Alanine Aminotransferase (ALT/SGPT) 45 U/L (14-59) Alkaline Phosphatase 54 U/L (46-116) C-Reactive Protein, Quantitative 31.0 mg/L (0-3.3) Total Protein 6.6 g/dL (6.4-8.2) Albumin 2.5 g/dL (3.4-5.0) Albumin/Globulin Ratio 0.6 (1.0-1.7) Test 04/01/20 07:29 04/01/20 12:16 04/01/20 17:23 04/01/20 22:16 Glucose (Fingerstick) 151 mg/dL (70-99) 221 mg/dL (70-99) 151 mg/dL (70-99) 176 mg/dL (70-99) Test 04/02/20 08:19 Glucose (Fingerstick) 133 mg/dL (70-99) Laboratory Tests Test 04/01/20 12:16 04/01/20 17:23 04/01/20 22:16 04/02/20 08:19 Glucose (Fingerstick) 221 mg/dL (70-99) 151 mg/dL (70-99) 176 mg/dL (70-99) 133 mg/dL (70-99) Microbiology 03/31/20 Blood Culture - Preliminary, Resulted NO GROWTH AFTER 1 DAY 03/28/20 Urine Culture - Final, Complete Medications Current Medications Diphenhydramine HCl (Benadryl) 25 mg 1X ONCE IVP Last administered on 03/28/20at 23:18; Start 03/28/20 at 23:15; Stop 03/28/20 at 23:16; Status DC Ondansetron HCl (Zofran) 4 mg 1X ONCE IVP Last administered on 03/28/20at 23:18; Start 03/28/20 at 23:15; Stop 03/28/20 at 23:16; Status DC Ondansetron HCl (Zofran) 4 mg PRN Q8HRS PRN IV NAUSEA/VOMITING; Start 03/29/20 at 00:30; Stop 03/29/20 at 08:39; Status DC Cephalexin HCl (Keflex) 1,000 mg 1X ONCE PO Last administered on 03/29/20 01:34; Start 03/29/20 at 00:30; Stop 03/29/20 at 00:31; Status DC Acetaminophen/ Hydrocodone Bitart (Lortab 5/325) 1 tab 1X ONCE PO Last administered on 03/29/20at 01:45; Start 03/29/20 at 01:45; Stop 03/29/20 at 01:46; Status DC Insulin Human Lispro (HumaLOG) 0-9 UNITS TIDWMEALHC SQ Last administered on 04/01/20at 12:29; Start 03/29/20 at 08:45 Dextrose (Dextrose 50%-Water Syringe) 12.5 gm PRN Q15MIN PRN IV SEE COMMENTS; Start 03/29/20 at 08:45 Ondansetron HCl (Zofran) 4 mg PRN Q4HRS PRN IV NAUSEA/VOMITING Last administered on 03/31/20at 21:46; Start 03/29/20 at 08:45 Albuterol Sulfate (Ventolin Neb Soln) 2.5 mg QID NEB ; Start 03/29/20 at 09:00; Status Cancel Lidocaine (Lidoderm) 1 patch DAILY TP Last administered on 04/01/20at 07:11; Start 03/29/20 at 09:00 Tramadol HCl (Ultram) 50 mg DAILY PRN PO PAIN Last administered on 03/29/20at 14:24; Start 03/29/20 at 08:45; Stop 03/30/20 at 11:03; Status DC Acetaminophen (Tylenol) 650 mg PRN Q6HRS PRN PO MILD PAIN / TEMP > 100.3'F Last administered on 04/01/20at 15:59; Start 03/29/20 at 08:45 Enoxaparin Sodium (Lovenox 40mg Syringe) 40 mg Q24H SQ Last administered on 03/30/20at 09:16; Start 03/29/20 at 09:00; Stop 03/30/20 at 15:23; Status DC Albuterol Sulfate (Ventolin Neb Soln) 2.5 mg RTQID NEB ; Start 03/29/20 at 09:00; Stop 03/29/20 at 09:27; Status DC Miscellaneous (Lidoderm Patch Removal) 1 ea QHS MC ; Start 03/29/20 at 21:00 Albuterol Sulfate (Ventolin Neb Soln) 2.5 mg PRN Q4HRS PRN NEB SHORTNESS OF BREATH; Start 03/29/20 at 09:30 Cyclobenzaprine HCl (Flexeril) 5 mg TID PRN PRN PO MUSCLE SPASMS Last administered on 03/30/20at 20:58; Start 03/29/20 at 13:45; Stop 03/31/20 at 09:20; Status DC Tramadol HCl (Ultram) 50 mg PRN DAILY PRN PO MODERATE PAIN; Start 03/30/20 at 11:15; Stop 03/30/20 at 11:59; Status DC Tramadol HCl (Ultram) 50 mg PRN Q6HRS PRN PO MODERATE PAIN Last administered on 03/31/20at 12:08; Start 03/30/20 at 12:00 Enoxaparin Sodium (Lovenox 40mg Syringe) 40 mg Q12HR SQ ; Start 03/30/20 at 16:00; Status Cancel Orphenadrine Citrate (Norflex) 60 mg 1X ONCE IM Last administered on 03/30/20at 16:14; Start 03/30/20 at 15:30; Stop 03/30/20 at 15:31; Status DC Diazepam (Valium) 2 mg PRN DAILY PRN PO ANXIETY/Muscle spasms; Start 03/30/20 at 15:30 Zinc Sulfate (Orazinc) 220 mg DAILY PO Last administered on 04/01/20at 07:12; Start 03/30/20 at 15:30 Ascorbic Acid (Vitamin C) 500 mg DAILY PO Last administered on 04/01/20at 07:11; Start 03/30/20 at 15:30 Morphine Sulfate (Morphine Sulfate) 2 mg PRN Q4HRS PRN IV PAIN Last administered on 03/30/20at 16:18; Start 03/30/20 at 16:00 Enoxaparin Sodium (Lovenox 40mg Syringe) 40 mg Q12HR SQ Last administered on 04/01/20at 22:08; Start 03/30/20 at 21:00 Cyclobenzaprine HCl (Flexeril) 10 mg TID PRN PRN PO MUSCLE SPASMS; Start 03/31/20 at 09:30; Stop 03/31/20 at 13:05; Status DC Guaifenesin (Robitussin Dm) 10 ml PRN Q6HRS PRN PO COUGH Last administered on 04/01/20at 07:11; Start 03/31/20 at 09:30 Cyclobenzaprine HCl (Flexeril) 5 mg TID PRN PRN PO MUSCLE SPASMS; Start 03/31/20 at 13:15 Sodium Chloride 1,000 ml @ 1,000 mls/hr 1X ONCE IV Last administered on 03/31/20at 13:15; Start 03/31/20 at 13:15; Stop 03/31/20 at 14:14; Status DC Guaifenesin (Robitussin) 200 mg PRN Q4HRS PRN PO COUGH 1ST CHOICE Last administered on 04/01/20at 15:53; Start 04/01/20 at 09:45 Famotidine (Pepcid) 20 mg BID PO Last administered on 04/01/20at 22:08; Start 04/01/20 at 10:30 Active Scripts Active Reported Lidocaine PATCH (Lidocaine) 1 Each Adh..patch 1 Each TP DAILY REMOVE AFTER 12 HOURS Cyclobenzaprine Hcl 5 Mg Tablet 5 Mg PO TID Premarin (Estrogens, Conjugated) 0.3 Mg Tablet Unknown Dose PO DAILY Trulicity (Dulaglutide) 0.75 Mg/0.5 Ml Pen.injctr Unknown Dose SQ WEEKLYAC Tramadol Hcl 50 Mg Tablet 50 Mg PO DAILY PRN Albuterol Sulfate Neb Soln (Albuterol Sulfate) 2.5 Mg/3 Ml Vial.neb 1 Vial NEB QID Vitals/I & O Vital Sign - Last 24 Hours 04/01/20 04/01/20 04/01/20 04/01/20 11:00 15:00 22:00 22:18 Temp 99.2 101.2 98.6 99.2 101.2 98.6 Pulse 90 80 77 Resp 20 20 18 B/P (MAP) 98/56 (70) 96/55 (69) 97/57 (70) Pulse Ox 98 96 O2 Delivery Room Air Room Air Room Air Room Air 04/02/20 04/02/20 03:21 07:55 Temp 99.7 98.9 99.7 98.9 Pulse 83 99 Resp 18 16 B/P (MAP) 98/51 (67) 107/68 (81) Pulse Ox 98 96 O2 Delivery Room Air Room Air Intake and Output 04/01/20 04/01/20 04/02/20 15:00 23:00 07:00 Intake Total 1000 ml 300 ml 200 ml Balance 1000 ml 300 ml 200 ml Justicifation of Admission Dx: Justifications for Admission: Justification of Admission Dx: Yes LEILANI BUCKNER MD Apr 02, 2020 08:50
[2020-04-02] MEDS: ENOXAPARIN 40 MG/0.4 ML SYRINGE. SQ SCH (09:58)
[2020-04-02] MEDS: ASCORBIC ACID 500 MG TABLET PO SCH (09:58)
[2020-04-02] MEDS: ZINC SULFATE 220 MG CAPSULE. PO SCH (09:58)
[2020-04-02] MEDS: FAMOTIDINE 20 MG TABLET. PO SCH (09:58)
[2020-04-02] MEDS: LIDOCAINE (700MG/PATCH) PATCH. TP SCH (10:01)
--- NOTE | 2020-04-02 10:23 | PDOC ---
PULMONARY PROGRESS NOTES DATE: 04/02/20 TIME: 10:23 Subjective Patient with no new symptoms Vitals Vital Signs Date Time Temp Pulse Resp B/P (MAP) Pulse Ox O2 Delivery O2 Flow Rate FiO2 04/02/20 07:55 98.9 99 16 107/68 (81) 96 Room Air 98.9 Comments PT. seen during covid- pandemic, visual exam preformed RRR R/A no rash no edema No use of accessory muscles Lungs: Clear Labs Laboratory Tests Test 03/31/20 11:49 03/31/20 16:54 03/31/20 21:19 04/01/20 03:15 Glucose (Fingerstick) 181 mg/dL (70-99) 238 mg/dL (70-99) 204 mg/dL (70-99) White Blood Count 3.1 x10^3/uL (4.0-11.0) Red Blood Count 4.36 x10^6/uL (3.50-5.40) Hemoglobin 12.1 g/dL (12.0-15.5) Hematocrit 36.7 % (36.0-47.0) Mean Corpuscular Volume 84 fL (79-100) Mean Corpuscular Hemoglobin 28 pg (25-35) Mean Corpuscular Hemoglobin Concent 33 g/dL (31-37) Red Cell Distribution Width 13.6 % (11.5-14.5) Platelet Count 146 x10^3/uL (140-400) Neutrophils (%) (Auto) 73 % (31-73) Lymphocytes (%) (Auto) 23 % (24-48) Monocytes (%) (Auto) 4 % (0-9) Eosinophils (%) (Auto) 0 % (0-3) Basophils (%) (Auto) 0 % (0-3) Neutrophils # (Auto) 2.3 x10^3/uL (1.8-7.7) Lymphocytes # (Auto) 0.7 x10^3/uL (1.0-4.8) Monocytes # (Auto) 0.1 x10^3/uL (0.0-1.1) Eosinophils # (Auto) 0.0 x10^3/uL (0.0-0.7) Basophils # (Auto) 0.0 x10^3/uL (0.0-0.2) D-Dimer (Rachael) 0.41 ug/mlFEU (0.00-0.50) Sodium Level 139 mmol/L (136-145) Potassium Level 3.9 mmol/L (3.5-5.1) Chloride Level 105 mmol/L (98-107) Carbon Dioxide Level 28 mmol/L (21-32) Anion Gap 6 (6-14) Blood Urea Nitrogen 12 mg/dL (7-20) Creatinine 0.8 mg/dL (0.6-1.0) Estimated GFR (Cockcroft-Gault) 93.4 BUN/Creatinine Ratio 15 (6-20) Glucose Level 144 mg/dL (70-99) Calcium Level 8.1 mg/dL (8.5-10.1) Total Bilirubin 0.3 mg/dL (0.2-1.0) Aspartate Amino Transf (AST/SGOT) 39 U/L (15-37) Alanine Aminotransferase (ALT/SGPT) 45 U/L (14-59) Alkaline Phosphatase 54 U/L (46-116) C-Reactive Protein, Quantitative 31.0 mg/L (0-3.3) Total Protein 6.6 g/dL (6.4-8.2) Albumin 2.5 g/dL (3.4-5.0) Albumin/Globulin Ratio 0.6 (1.0-1.7) Test 04/01/20 07:29 04/01/20 12:16 04/01/20 17:23 04/01/20 22:16 Glucose (Fingerstick) 151 mg/dL (70-99) 221 mg/dL (70-99) 151 mg/dL (70-99) 176 mg/dL (70-99) Test 04/02/20 08:19 Glucose (Fingerstick) 133 mg/dL (70-99) Laboratory Tests Test 04/01/20 12:16 04/01/20 17:23 04/01/20 22:16 04/02/20 08:19 Glucose (Fingerstick) 221 mg/dL (70-99) 151 mg/dL (70-99) 176 mg/dL (70-99) 133 mg/dL (70-99) Medications Active Scripts Medications Dose Route/Sig Max Daily Dose Days Date Category Dose Instructions Lidocaine PATCH (Lidocaine) 1 Each Adh..patch 1 Each TP DAILY 03/20/20 Reported REMOVE AFTER 12 HOURS Cyclobenzaprine Hcl 5 Mg Tablet 5 Mg PO TID 03/20/20 Reported Premarin (Estrogens, Conjugated) 0.3 Mg Tablet Unknown Dose PO DAILY 09/20/19 Reported Trulicity (Dulaglutide) 0.75 Mg/0.5 Ml Pen.injctr Unknown Dose SQ WEEKLYAC 09/20/19 Reported Tramadol Hcl 50 Mg Tablet 50 Mg PO DAILY PRN 09/20/19 Reported Albuterol Sulfate Neb Soln (Albuterol Sulfate) 2.5 Mg/3 Ml Vial.neb 1 Vial NEB QID 01/16/19 Reported Impression . IMPRESSION: 1. COVID-19 positive without any pulmonary symptoms. She is on room air. 2. Asthma, stable. 3. Diabetes mellitus. 4. Back pain? etiology. 5. elevated d-dimer- improved Plan . Discharge home today follow-up in the office as needed I informed the patient that it may take up to several months before she is back to normal EDI KAUR MD Apr 02, 2020 10:23
[2020-04-02 11:24] VITALS: BP 124/69
[2020-04-02 11:28] LABS: ALBUMIN 2.7 g/dL (3.4-5.0); ALBUMIN/GLOBULIN RATIO 0.6 (1.0-1.7); C-REACTIVE PROTEIN 44.1 mg/L (0-3.3); CALCIUM 8.5 mg/dL (8.5-10.1); CREATININE 0.8 mg/dL (0.6-1.0); GFR 93.4; POTASSIUM 4.4 mmol/L (3.5-5.1); TOTAL BILIRUBIN 0.3 mg/dL (0.2-1.0); TOTAL PROTEIN 7.4 g/dL (6.4-8.2)
--- NOTE | 2020-04-02 14:01 | RAD ---
CHEST AP ONLY Clinical indications: Pneumonia. COMPARISON: March 28, 2020. Findings: Decreased lung volumes are again evident with mild elevation of the right hemidiaphragm. No acute lung infiltrate or pleural effusion or pulmonary edema or lung mass or pneumothorax is seen. The heart size, pulmonary vasculature, mediastinum and both ry are unremarkable. Impression: No acute radiographic abnormality is seen. Electronically signed by: Galindo Newman MD (04/02/2020 1:58 PM) [id number]
[2020-04-02 15:52] VITALS: BP 122/65
--- NOTE | 2020-04-02 16:29 | PDOC3 ---
Discharge Summary Date of Admission: Mar 29, 2020 Date of Discharge: Apr 02, 2020 Follow-Up: 3-5 days Admitting Diagnosis comment: DISCHARGE DX Intractable back pain -acute on chronic, not responsive to Lidoderm patch and heat, worse after recent LESI, subdural hematoma or abscesses possibly given her fevers. Leg weakness and spasms -no saddle anesthesia or urinary or fecal incontinence, and there is no immediate neurological concern, however MRI with contrast to be appropriate to rule out epidural abscess or epidural hematoma given her symptoms after recent LESI. COVID 19 -not requiring oxygen, will place on Lovenox. No indication for st eroids or plasma will continue to monitor O2 needs. her only steroid indication may actually be for her back pain Sepsis - 2/2 COVID 19 -no COVID-19 contacts, she does have a 26-year-old son and 15-year-old at home her 26-year-old son. 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 Will obtain blood cultures Anxiety - cont meds, would overall advise to reduce and cut out xanax and use alternative medication that does not have as many side effects Asthma - prn inhaler Diabetes-Type II - basal bolus plus insulin Chronic back pain - s/p recent LESI PLAN FEN - ADA diet PPX - SCDs FULL CODE Dispo - inpatient PT/OT pcxr 04/02 04/02 FEELS OK INSISTS ON D/C HOME TODAY 04/02 t max 101.2 04/01 d/w rn CHEST AP ONLY Clinical indications: Pneumonia. COMPARISON: March 28, 2020. Findings: Decreased lung volumes are again evident with mild elevation of the right hemidiaphragm. No acute lung infiltrate or pleural effusion or pulmonary edema or lung mass or pneumothorax is seen. The heart size, pulmonary vasculature, mediastinum and both ry are unremarkable. Impression: No acute radiographic abnormality is seen. Electronically signed by: Gael Newman MD (04/02/2020 1:58 PM) [id number] DICTATED and SIGNED BY: GAEL NEWMAN MD D/C PLANNING 32 MIN History of Present Illness History of Present Illness Ms Price (Alba) is a 44 yo F w/ PMHx Anxiety, Asthma, Diabetes-Type II, chronic lower back pain who presents with multiple complaints including objective fever at home of 100.7 F associated with low back pain status post epidural injections recently, most recent on 03/20/2020. She also c/o generalized body aches. Patient states she has had a documented temperature every day for the past 5 days, temp as high as 102F. She notes increased back pain over her post procedure area from LESI, though no obvious cellulitis noted on examination. Denies any trauma or injury. Does report a mild sore throat only when she coughs. Denies dysphonia or pain with swallowing. Does note body aches. Does note mild chest pain and back pain she attributes to aching sensation. Denies urinary symptoms. States she has a history of hysterectomy and bladder sling, however. Denies vomiting. Does note some nausea. Denies abdominal pain. Patient denies any urinary retention, stool incontinence, saddle anesthesia, but she does notice bilateral leg spasms that she cannot control in thighs and calves and also some weakness to the bilateral legs. CXR hypoexpanded exam with mild linear opacities at lung bases. Labs significant for WBC 3.7, Hb 14.5, platelets 190, NA 135, K4.1, mag 2.1, BUN 14, CR 1, glucose 175, CA 10.3, CRP elevated at 10.3. Given Keflex in ED. COVID swab obtained and returned positive. Urine culture returned with normal genitourinary danyell. 03/30: Febrile to 101 F this morning. She still having a lot of back pain although less spasming still weak in both legs and feeling unsteady. She has a slight cough, no O2 needs. 03/31: Febrile to 101 F overnight. Still having lower extremity weakness and back pain. No O2 needs. Cannot return home with her family as the were not COVID-19 positive and has a son undergoing chemotherapy. 04/02 BETTER NO COUGH OR SOA Still febrile at 101 F overnight. Weakness and back pain are improving. Still with no O2 needs. She has no safe place to go on discharge no one to care for her children. She does have a cough today that is new and some upset stomach. Vitals Vitals Vital Signs Date Time Temp Pulse Resp B/P (MAP) Pulse Ox O2 Delivery O2 Flow Rate FiO2 9/8/20 07:55 98.9 99 16 107/68 (81) 96 Room Air 98.9 Physical Exam General: Alert, Oriented X3, Cooperative, No acute distress Heart: Regular rate, Normal S1 Lungs: Clear Abdomen: Normal bowel sounds, Soft Extremities: No clubbing, No cyanosis, No edema, Normal pulses, No tenderness/swelling Skin: No rashes, No breakdown, No significant lesion Labs FINAL DIAGNOSIS Problems Medical Problems: (1) Back pain Status: Acute (2) Bacteria in urine Status: Acute (3) Fever Status: Acute Brief Hospital Course Ms. Jaimes is a 44 old [sex] who presented with [ COVID-19 SYNDROME, FEVER ] CONDITION AT DISCHARGE: Improved Discharge Medications Current Medications Diphenhydramine HCl (Benadryl) 25 mg 1X ONCE IVP Last administered on 03/28/20at 23:18; Start 03/28/20 at 23:15; Stop 03/28/20 at 23:16; Status DC Ondansetron HCl (Zofran) 4 mg 1X ONCE IVP Last administered on 03/28/20at 23:18; Start 03/28/20 at 23:15; Stop 03/28/20 at 23:16; Status DC Ondansetron HCl (Zofran) 4 mg PRN Q8HRS PRN IV NAUSEA/VOMITING; Start 03/29/20 at 00:30; Stop 03/29/20 at 08:39; Status DC Cephalexin HCl (Keflex) 1,000 mg 1X ONCE PO Last administered on 03/29/20at 01:34; Start 03/29/20 at 00:30; Stop 03/29/20 at 00:31; Status DC Acetaminophen/ Hydrocodone Bitart (Lortab 5/325) 1 tab 1X ONCE PO Last administered on 03/29/20at 01:45; Start 03/29/20 at 01:45; Stop 03/29/20 at 01:46; Status DC Insulin Human Lispro (HumaLOG) 0-9 UNITS TIDWMEALHC SQ Last administered on 04/02/20at 12:48; Start 03/29/20 at 08:45 Dextrose (Dextrose 50%-Water Syringe) 12.5 gm PRN Q15MIN PRN IV SEE COMMENTS; Start 03/29/20 at 08:45 Ondansetron HCl (Zofran) 4 mg PRN Q4HRS PRN IV NAUSEA/VOMITING Last administered on 03/31/20at 21:46; Start 03/29/20 at 08:45 Albuterol Sulfate (Ventolin Neb Soln) 2.5 mg QID NEB ; Start 03/29/20 at 09:00; Status Cancel Lidocaine (Lidoderm) 1 patch DAILY TP Last administered on 04/02/20at 10:01; Start 03/29/20 at 09:00 Tramadol HCl (Ultram) 50 mg DAILY PRN PO PAIN Last administered on 03/29/20at 14:24; Start 03/29/20 at 08:45; Stop 03/30/20 at 11:03; Status DC Acetaminophen (Tylenol) 650 mg PRN Q6HRS PRN PO MILD PAIN / TEMP > 100.3'F Last administered on 04/01/20at 15:59; Start 03/29/20 at 08:45 Enoxaparin Sodium (Lovenox 40mg Syringe) 40 mg Q24H SQ Last administered on 03/30/20at 09:16; Start 03/29/20 at 09:00; Stop 03/30/20 at 15:23; Status DC Albuterol Sulfate (Ventolin Neb Soln) 2.5 mg RTQID NEB ; Start 03/29/20 at 09:00; Stop 03/29/20 at 09:27; Status DC Miscellaneous (Lidoderm Patch Removal) 1 ea QHS ; Start 03/29/20 at 21:00 Albuterol Sulfate (Ventolin Neb Soln) 2.5 mg PRN Q4HRS PRN NEB SHORTNESS OF BREATH; Start 03/29/20 at 09:30 Cyclobenzaprine HCl (Flexeril) 5 mg TID PRN PRN PO MUSCLE SPASMS Last administered on 03/30/20at 20:58; Start 03/29/20 at 13:45; Stop 03/31/20 at 09:20; Status DC Tramadol HCl (Ultram) 50 mg PRN DAILY PRN PO MODERATE PAIN; Start 03/30/20 at 11:15; Stop 03/30/20 at 11:59; Status DC Tramadol HCl (Ultram) 50 mg PRN Q6HRS PRN PO MODERATE PAIN Last administered on 03/31/20at 12:08; Start 03/30/20 at 12:00 Enoxaparin Sodium (Lovenox 40mg Syringe) 40 mg Q12HR SQ ; Start 03/30/20 at 16:00; Status Cancel Orphenadrine Citrate (Norflex) 60 mg 1X ONCE IM Last administered on 03/30/20at 16:14; Start 03/30/20 at 15:30; Stop 03/30/20 at 15:31; Status DC Diazepam (Valium) 2 mg PRN DAILY PRN PO ANXIETY/Muscle spasms-2ND PETTY; Start 03/30/20 at 15:30 Zinc Sulfate (Orazinc) 220 mg DAILY PO Last administered on 04/02/20 09:58; Start 03/30/20 at 15:30 Ascorbic Acid (Vitamin C) 500 mg DAILY PO Last administered on 04/02/20at 09:58; Start 03/30/20 at 15:30 Morphine Sulfate (Morphine Sulfate) 2 mg PRN Q4HRS PRN IV PAIN Last administered on 03/30/20at 16:18; Start 03/30/20 at 16:00 Enoxaparin Sodium (Lovenox 40mg Syringe) 40 mg Q12HR SQ Last administered on 04/02/20at 09:58; Start 03/30/20 at 21:00 Cyclobenzaprine HCl (Flexeril) 10 mg TID PRN PRN PO MUSCLE SPASMS; Start 03/31/20 at 09:30; Stop 03/31/20 at 13:05; Status DC Guaifenesin (Robitussin Dm) 10 ml PRN Q6HRS PRN PO COUGH, 2ND CHOICE Last administered on 04/01/20at 07:11; Start 03/31/20 at 09:30 Cyclobenzaprine HCl (Flexeril) 5 mg TID PRN PRN PO MUSCLE SPASMS; Start 03/31/20 at 13:15 Sodium Chloride 1,000 ml @ 1,000 mls/hr 1X ONCE IV Last administered on 03/31/20at 13:15; Start 03/31/20 at 13:15; Stop 03/31/20 at 14:14; Status DC Guaifenesin (Robitussin) 200 mg PRN Q4HRS PRN PO COUGH 1ST CHOICE Last administered on 9/7/20at 15:53; Start 04/01/20 at 09:45 Famotidine (Pepcid) 20 mg BID PO Last administered on 04/02/20at 09:58; Start 04/01/20 at 10:30 Active Scripts Active Reported Lidocaine PATCH (Lidocaine) 1 Each Adh..patch 1 Each TP DAILY REMOVE AFTER 12 HOURS Cyclobenzaprine Hcl 5 Mg Tablet 5 Mg PO TID Premarin (Estrogens, Conjugated) 0.3 Mg Tablet Unknown Dose PO DAILY Trulicity (Dulaglutide) 0.75 Mg/0.5 Ml Pen.injctr Unknown Dose SQ WEEKLYAC Tramadol Hcl 50 Mg Tablet 50 Mg PO DAILY PRN Albuterol Sulfate Neb Soln (Albuterol Sulfate) 2.5 Mg/3 Ml Vial.neb 1 Vial NEB QID Vital Signs Vital Signs Date Time Temp Pulse Resp B/P (MAP) Pulse Ox O2 Delivery O2 Flow Rate FiO2 04/02/20 15:52 99.1 66 20 122/65 (84) 99 Room Air 99.1 Labs Laboratory Tests Test 03/31/20 16:54 03/31/20 21:19 04/01/20 03:15 04/01/20 07:29 Glucose (Fingerstick) 238 mg/dL (70-99) 204 mg/dL (70-99) 151 mg/dL (70-99) White Blood Count 3.1 x10^3/uL (4.0-11.0) Red Blood Count 4.36 x10^6/uL (3.50-5.40) Hemoglobin 12.1 g/dL (12.0-15.5) Hematocrit 36.7 % (36.0-47.0) Mean Corpuscular Volume 84 fL (79-100) Mean Corpuscular Hemoglobin 28 pg (25-35) Mean Corpuscular Hemoglobin Concent 33 g/dL (31-37) Red Cell Distribution Width 13.6 % (11.5-14.5) Platelet Count 146 x10^3/uL (140-400) Neutrophils (%) (Auto) 73 % (31-73) Lymphocytes (%) (Auto) 23 % (24-48) Monocytes (%) (Auto) 4 % (0-9) Eosinophils (%) (Auto) 0 % (0-3) Basophils (%) (Auto) 0 % (0-3) Neutrophils # (Auto) 2.3 x10^3/uL (1.8-7.7) Lymphocytes # (Auto) 0.7 x10^3/uL (1.0-4.8) Monocytes # (Auto) 0.1 x10^3/uL (0.0-1.1) Eosinophils # (Auto) 0.0 x10^3/uL (0.0-0.7) Basophils # (Auto) 0.0 x10^3/uL (0.0-0.2) D-Dimer (Rachael) 0.41 ug/mlFEU (0.00-0.50) Sodium Level 139 mmol/L (136-145) Potassium Level 3.9 mmol/L (3.5-5.1) Chloride Level 105 mmol/L (98-107) Carbon Dioxide Level 28 mmol/L (21-32) Anion Gap 6 (6-14) Blood Urea Nitrogen 12 mg/dL (7-20) Creatinine 0.8 mg/dL (0.6-1.0) Estimated GFR (Cockcroft-Gault) 93.4 BUN/Creatinine Ratio 15 (6-20) Glucose Level 144 mg/dL (70-99) Calcium Level 8.1 mg/dL (8.5-10.1) Total Bilirubin 0.3 mg/dL (0.2-1.0) Aspartate Amino Transf (AST/SGOT) 39 U/L (15-37) Alanine Aminotransferase (ALT/SGPT) 45 U/L (14-59) Alkaline Phosphatase 54 U/L (46-116) C-Reactive Protein, Quantitative 31.0 mg/L (0-3.3) Total Protein 6.6 g/dL (6.4-8.2) Albumin 2.5 g/dL (3.4-5.0) Albumin/Globulin Ratio 0.6 (1.0-1.7) Test 04/01/20 12:16 04/01/20 17:23 04/01/20 22:16 04/02/20 08:19 Glucose (Fingerstick) 221 mg/dL (70-99) 151 mg/dL (70-99) 176 mg/dL (70-99) 133 mg/dL (70-99) Test 04/02/20 10:16 04/02/20 11:43 Sodium Level 139 mmol/L (136-145) Potassium Level 4.4 mmol/L (3.5-5.1) Chloride Level 102 mmol/L (98-107) Carbon Dioxide Level 30 mmol/L (21-32) Anion Gap 7 (6-14) Blood Urea Nitrogen 10 mg/dL (7-20) Creatinine 0.8 mg/dL (0.6-1.0) Estimated GFR (Cockcroft-Gault) 93.4 BUN/Creatinine Ratio 13 (6-20) Glucose Level 224 mg/dL (70-99) Calcium Level 8.5 mg/dL (8.5-10.1) Ferritin 1433 ng/mL (8-252) Total Bilirubin 0.3 mg/dL (0.2-1.0) Aspartate Amino Transf (AST/SGOT) 55 U/L (15-37) Alanine Aminotransferase (ALT/SGPT) 64 U/L (14-59) Alkaline Phosphatase 63 U/L (46-116) C-Reactive Protein, Quantitative 44.1 mg/L (0-3.3) Total Protein 7.4 g/dL (6.4-8.2) Albumin 2.7 g/dL (3.4-5.0) Albumin/Globulin Ratio 0.6 (1.0-1.7) Glucose (Fingerstick) 190 mg/dL (70-99) Laboratory Tests Test 04/01/20 17:23 04/01/20 22:16 04/02/20 08:19 04/02/20 10:16 Glucose (Fingerstick) 151 mg/dL (70-99) 176 mg/dL (70-99) 133 mg/dL (70-99) Sodium Level 139 mmol/L (136-145) Potassium Level 4.4 mmol/L (3.5-5.1) Chloride Level 102 mmol/L (98-107) Carbon Dioxide Level 30 mmol/L (21-32) Anion Gap 7 (6-14) Blood Urea Nitrogen 10 mg/dL (7-20) Creatinine 0.8 mg/dL (0.6-1.0) Estimated GFR (Cockcroft-Gault) 93.4 BUN/Creatinine Ratio 13 (6-20) Glucose Level 224 mg/dL (70-99) Calcium Level 8.5 mg/dL (8.5-10.1) Ferritin 1433 ng/mL (8-252) Total Bilirubin 0.3 mg/dL (0.2-1.0) Aspartate Amino Transf (AST/SGOT) 55 U/L (15-37) Alanine Aminotransferase (ALT/SGPT) 64 U/L (14-59) Alkaline Phosphatase 63 U/L (46-116) C-Reactive Protein, Quantitative 44.1 mg/L (0-3.3) Total Protein 7.4 g/dL (6.4-8.2) Albumin 2.7 g/dL (3.4-5.0) Albumin/Globulin Ratio 0.6 (1.0-1.7) Test 04/02/20 11:43 Glucose (Fingerstick) 190 mg/dL (70-99) Allergies Allergies Coded Allergies Type Severity Reaction Last Updated Verified povidone-iodine Allergy Mild rash 02/03/17 Yes soap Allergy Mild rash 02/03/17 Yes Disposition/Orders: D/C to Home Justicifation of Admission Dx: Justifications for Admission: Justification of Admission Dx: Yes LEILANI BUCKNER MD Apr 02, 2020 16:29
[2020-04-02] MEDS ORDERED: FAMO20TA5 PO (16:31)
[2020-04-02] MEDS ORDERED: ASCO500T4 PO (16:31)
[2020-04-02] MEDS ORDERED: GUAI5SYR PO (16:31)
[2020-04-02] MEDS ORDERED: ZINC220C2 PO (16:31)
[2020-04-02] MEDS ORDERED: ACET325T9 PO (16:31)
--- NOTE | 2020-04-02 16:32 | DISCH ---
DISCHARGE INSTRUCTIONS Condition on Discharge Condition on Discharge: Stable Activity After Discharge Activity Instructions for Disc: Activity as tolerated Lifting Instructions after Dis: No heavy lifting, No pulling or pushing Driving Instructions after Dis: Do not drive today Weight Bearing Status after Di: No restrictions Diet after Discharge Diet after Discharge: Regular Liquid Texture: Thin Liquid Checks after Discharge Checks after discharge: Check blood press - daily Contacting the DRRemy after DC Call your doctor for: If your condition worsens LEILANI BUCKNER MD Apr 02, 2020 16:32
--- NOTE | 2020-04-02 17:03 | NUR ---
Discharge Note: [facility] Discharge instructions and discharge home medications reviewed with Patient and a copy given. All questions have been answered and understanding verbalized. The following instructions and handouts were given: follow up instructions, medication education, covid discharge instructions Discontinued lines and drains: 20 gauge Left Ac, tip intact. patient tolerated well. Patient discharged to home with self care via self.
--- NOTE | 2020-04-02 17:13 | NUR ---
SW following. Spoke with RN and reviewed chart. Pt from home. Pt COVID positive. Pt on room air. PT evaluated this pt and recommended home independent. Pt to discharge home today on oral medications. No further SW needs at this time.
== END 2020-04-02 17:15 | disposition home or self-care (01) | DRG 871 ==
LOC: ER 22:31 → 6 SOUTH 03-29 00:20 → OBSVTOIN 03-29 15:00
PROVIDERS: ADMIT Family Medicine; ATTEND Family Medicine
DX: A41.9 Sepsis, unspecified organism (principal); U07.1 COVID-19; G06.2 Extradural and subdural abscess, unspecified; M19.90 Unspecified osteoarthritis, unspecified site; E11.9 Type 2 diabetes mellitus without complications; F41.9 Anxiety disorder, unspecified; J45.909 Unspecified asthma, uncomplicated; G89.29 Other chronic pain; I10 Essential (primary) hypertension; E78.5 Hyperlipidemia, unspecified; M51.36 Other intervertebral disc degeneration, lumbar region; Z90.710 Acquired absence of both cervix and uterus; Z88.8 Allergy status to other drugs, medicaments and biological substances; Z91.048 Other nonmedicinal substance allergy status; Z82.49 Family history of ischemic heart disease and other diseases of the circulatory system
CPT/HCPCS: 36415; 71045; 80048; 80053; 81001; 82728; 82962; 83735; 84145; 85025; 85379; 85610; 86140; 87040; 87086; 96374; 96375; 99285; G0378; G0379; J1200; J1650; J1815; J2270; J2360; J2405; J7030; 97530-GP; U0003-CS

== ENCOUNTER → 2020-05-28 | Outpatient (CLI) | payer OTHER ==
[~2020-05-28] MED LIST changes: +ACET325T9 PO; +ASCO500T4 PO; +FAMO20TA5 PO; +GUAI5SYR PO; +IOHEXOL 180 MG/ML 10 ML VIAL. ONE; +ZINC220C2 PO; +methylPREDNISolone ACETATE 40 MG/ML VIAL. ONE; +methylPREDNISolone ACETATE 80 MG/ML VIAL. ONE
--- NOTE | 2020-05-28 15:06 | PDOC ---
Progress Note - Pain Clinic Date of Service: DOS: DATE: 05/28/20 TIME: 15:02 Diagnosis: Dx: Lumbar radiculopathy with lumbar degenerative disc disease History or Present Illness: HPI: 44-year-old female returns follow-up status post lumbar epidurals injection x3 most recently on 03/20/2020. Patient reports doing very well.85% improvement in the low back and right lower extremity pain. Patient reports that is returning now over the past 1 to 2 weeks with pain in the low back right lower extremity rating the posterior gluteus posterior thigh posterior calf even into the foot at times with walking and standing patient ports better with sitting and laying down generalized not awaken her from sleep at night. Patient ports pain is a 9 on scale 10 is worse over the past week 9 on average 9 its least is a 9 today describes it as stabbing sharp and shooting in the low back and right leg. Patient reports initially was doing much better distance walking doing household activities working activities try with greater ease and comfort now the pain is returning as noted. Patient reports no new motor or sensory deficits no new bowel or bladder con's or other complaints. Physical Exam: VS: Blood pressure is 122/88 pulse 88 respirations 18 temperature 98.0 F 5 foot 11 inches weight is 2 1 2 pounds PE: PHYSICAL EXAMINATION: GENERAL: The patient is awake, alert, oriented, appropriate, very pleasant demeanor HEENT: Shows normocephalic, atraumatic. Extraocular movements are intact and s ymmetrical. Oral cavity: Mucous membranes moist and pink. NECK: Shows anterior throat supple without palpable lymphadenopathy noted. Swallow reflex symmetrical. CHEST: Shows normal on inspection. Breath sounds are clear bilaterally, no rales rhonchi or wheezes. HEART: Shows S1, S2 clear. No murmurs auscultated. ABDOMEN: Soft, nontender, nondistended, obese. no palpable organomegaly is noted. No rebound or guarding demonstrated. BACK: Shows spine grossly in the midline. Normal-appearing cervical lordotic curvature. There is slightly increased thoracic kyphosis, some minor flattening of the lumbar lordotic curvature. Lumbar paraspinous muscles show symmetrical on inspection, on palpation shows some moderate tenderness diffusely throughout the upper, middle and lower distribution of the paraspinous muscles without specific trigger points, without radiation of pain. The patient has good rotational motion of the lumbar spine, both laterally as well as extension and flexion without significant difficulty. No tenderness over the spinous processes, sacrum or sacroiliac regions. EXTREMITIES: Lower extremities show deep tendon reflexes 2+ in the patellar and tendo calcaneus tendons. Motor exam is 4 on a scale of 5 with right dorsiflexion, extension, quadriceps and hamstring flexion and 5/5 on the left. Peripheral pulses are 1+ posterior tibial. No peripheral edema is noted bilaterally. Lower extremities are warm and dry to touch, equal in color and appearance. SKIN: Shows warm and dry, good turgor. No edema. No sores, rashes or bruising throughout. Procedure: Procedure: Options were discussed with the patient. Patient chart was reviewed as her current medication regimen updated current review of systems updated today as rekha gaspar. We will proceed with a first in this series, lumbar epidural steroid injection today with fluoroscopic guidance. Risks were discussed including but not limited to: Bleeding, infection, possibility of epidural hematoma and subsequent neurological compromise, dural puncture, headaches, spinal cord and/or nerve damage, side effects of steroid medication, and poor results regar ding pain control. Patient understands wished to proceed. Patient will return to clinic in approximate 2 weeks for follow-up was counseled as to return appointment activity level and side effects to be aware of. Medication Injected: Med Injected: Procedure is lumbar epidural steroid injection under local anesthetic using sterile prep and drape at the L5-S1 level using C-arm fluoroscopic guidance in both AP and lateral views medications injected is 120 mg Depo-Medrol + 10 mL preservative-free normal saline and 2 mL contrast- condition at discharge is stable patient tolerated procedure well had no complications. Condition at Discharge: Condition at Discharge: Condition at discharge stable, patient tolerated the procedure well and had no complications. MATTHEW LIZ MD May 28, 2020 15:06
== END | disposition home or self-care (01) ==
LOC: PNCL 14:09
PROVIDERS: ATTEND Anesthesiology
DX: M51.16 Intervertebral disc disorders with radiculopathy, lumbar region (principal); M79.604 Pain in right leg; E11.9 Type 2 diabetes mellitus without complications; F41.9 Anxiety disorder, unspecified; J45.909 Unspecified asthma, uncomplicated; Z90.710 Acquired absence of both cervix and uterus; Z98.890 Other specified postprocedural states; Z79.84 Long term (current) use of oral hypoglycemic drugs; Z79.899 Other long term (current) drug therapy; Z88.8 Allergy status to other drugs, medicaments and biological substances; Z91.041 Radiographic dye allergy status
CPT/HCPCS: 62323; J1030; J1040; Q9965

== ENCOUNTER → 2020-07-05 | Outpatient (CLI) | payer OTHER ==
--- NOTE | 2020-07-05 12:29 | PDOC ---
Progress Note - Pain Clinic Date of Service: DOS: DATE: 07/05/20 TIME: 12:25 Diagnosis: Dx: Lumbar radiculopathy with lumbar degenerative disc disease History or Present Illness: HPI: 44-year-old female returns follow-up status post lumbar epidurals or injection x1. Patient reports about 75 to 80% improvement and she was doing much better until she helped her son moved to a new apartment about a week ago with the pain began to return after extensive standing in a extensive walking bending changing positions and lifting items. Patient ports still pain the low back and right lower extremity rating the posterior gluteus posterior thigh posterior calf on the right side only worse with walking standing and better with sitting or laying down patient ports awaken her from sleep about once every 6 hours however patient rates the pain is 8 on scale 10 is worse over the past week 8 on average and 8 at its least and is an 8 today patient scribes as sharp and shooting stabbing at times in the back and radiating the right lower extremity. Patient reports no new motor or sensory deficits no new bowel or bladder incontinence or other complaints. Initially she was doing much better with distance walking doing household activities exercising and standing for longer periods. Physical Exam: VS: Pressure is 118/78 pulse 94 respirations 18 temperature 90.8 F height 6 foot weight is 222 pounds PE: PHYSICAL EXAMINATION: GENERAL: The patient is awake, alert, oriented, appropriate, very pleasant demeanor HEENT: Shows normocephalic, atraumatic. Extraocular movements are intact and symmetrical. Oral cavity: Mucous membranes moist and pink. NECK: Shows anterior throat supple without palpable lymphadenopathy noted. Swallow reflex symmetrical. CHEST: Shows normal on inspection. Breath sounds are clear and equal bilaterally. HEART: Shows S1, S2 clear. No murmurs auscultated. ABDOMEN: Soft, nontender, nondistended, obese. No palpable organomegaly is noted. No rebound or guarding demonstrated. BACK: Shows spine grossly in the midline. Normal-appearing cervical lordotic curvature. There is increased thoracic kyphosis, some flattening of the lumbar lordotic curvature. Lumbar paraspinous muscles show symmetrical on inspection, on palpation shows some moderate tenderness diffusely throughout the upper, middle and lower distribution of the paraspinous muscles, but without specific trigger points, without radiation of pain. The patient has good rotational motion of the lumbar spine, both laterally as well as extension and flexion without significant difficulty. No tenderness over the spinous processes, sacrum or sacroiliac regions. EXTREMITIES: Lower extremities show deep tendon reflexes 2+ in the patellar and tendo calcaneus tendons. Motor exam is 4 on a scale of 5 with right dorsiflexion, extension, quadriceps and hamstring flexion and 5/5 on the left. Peripheral pulses are 1+ posterior tibial. No peripheral edema is noted bilaterally. Lower extremities are warm and dry to touch, equal in color and appearance. SKIN: Shows warm and dry, good turgor. No edema. No sores, rashes or bruising throughout. Procedure: Procedure: Options were discussed with the patient. Patient chart was reviewed her current medication regimen updated current review of systems updated today as well. We will proceed with a second in the series lumbar epidural steroid injection today with fluoroscopic guidance. Risks were discussed including but not limited to: Bleeding, infection, possibility of epidural hematoma and subsequent neurological compromise, dural puncture, headaches, spinal cord and/or nerve da mage, side effects of steroid medication, and poor results regarding pain control. Patient understands wished to proceed. Patient will return to clinic in approximate 2 weeks for follow-up, was counseled as to return appointment activity level and side effects to be aware of. Medication Injected: Med Injected: Procedure is lumbar epidural steroid injection under local anesthetic using sterile prep and drape at the L5-S1 level using C-arm fluoroscopic guidance in both AP and lateral views medications injected is 120 mg Depo-Medrol + 10 mL preservative-free normal saline and 2 mL contrast- condition at discharge is stable patient tolerated procedure well had no complications. Condition at Discharge: Condition at Discharge: Condition at discharge stable, patient tolerated procedure well and had no complications. MATTHEW LIZ MD Jul 05, 2020 12:29
== END | disposition home or self-care (01) ==
LOC: PNCL 11:40
PROVIDERS: ATTEND Anesthesiology
DX: M51.16 Intervertebral disc disorders with radiculopathy, lumbar region (principal); J45.909 Unspecified asthma, uncomplicated; E11.9 Type 2 diabetes mellitus without complications; F41.9 Anxiety disorder, unspecified; Z79.899 Other long term (current) drug therapy; Z98.890 Other specified postprocedural states; Z90.710 Acquired absence of both cervix and uterus; Z91.041 Radiographic dye allergy status; Z88.8 Allergy status to other drugs, medicaments and biological substances
CPT/HCPCS: 62323; J1030; J1040; Q9965

== ENCOUNTER → 2021-02-19 | Outpatient (CLI) | payer OTHER ==
[~2021-02-19] MED LIST changes: -IOHEXOL 180 MG/ML 10 ML VIAL. ONE; -methylPREDNISolone ACETATE 40 MG/ML VIAL. ONE; -methylPREDNISolone ACETATE 80 MG/ML VIAL. ONE
--- NOTE | 2021-02-20 13:51 | RAD ---
PROCEDURE: MG 2D BILAT SCREENING HISTORY: The patient is 45 years old and is seen for Reason: SCREENING MAMMOGRAM / Spl. Instructions: UNABLE TO LOCATE PRIORS DONE 7 OR MORE YEARS AGO/COVID SHOT 11/01/20 RT ARM / History: . COMPARISON: No relevant comparison is available. New baseline. TECHNIQUE: CC and MLO views of both breasts were obtained. Images were processed by the [employer] computer-aided detection system. DENSITY: There are scattered fibroglandular densities. FINDINGS: No developing mass, suspicious calcifications or architectural distortion. IMPRESSION: Negative. No evidence of malignancy. Recommend annual screening mammograms per [place] [employer] guidelines. BI-RADS category 1 Negative Patient entered into a reminder system for annual screening mammogram. Electronically signed by: Mayur Dutton DO (02/20/2021 1:48 PM) [id number]
== END ==
LOC: MAMMO 15:39
PROVIDERS: ATTEND Obstetrics & Gynecology
DX: Z12.31 Encounter for screening mammogram for malignant neoplasm of breast (principal)
CPT/HCPCS: 77067